=== PATIENT | female | born 1935 | race Hispanic/Latino ===

== ENCOUNTER → 2018-02-27 | Outpatient (CLI) | payer OTHER ==
[~2018-02-27] MED LIST: IOHEXOL-350 75 ML VIAL IV ONE
== END | disposition home or self-care (01) ==
LOC: RAH 07:32
PROVIDERS: ATTEND Family Medicine
DX: K57.30 Diverticulosis of large intestine without perforation or abscess without bleeding (principal); M47.895 Other spondylosis, thoracolumbar region; I10 Essential (primary) hypertension; E78.00 Pure hypercholesterolemia, unspecified; Z90.49 Acquired absence of other specified parts of digestive tract; Z90.710 Acquired absence of both cervix and uterus
CPT/HCPCS: 74178; Q9967

== ENCOUNTER 2018-09-10 22:53 | Emergency (ER) | payer OTHER ==
[2018-09-10 23:27] LABS: BASOPHILS % (AUTO) 0.6 % (0.0-5.0); EOSINOPHILS % (AUTO) 1.1 % (0.0-8.0); HEMATOCRIT 41.2 % (36-48); LYMPHOCYTES % (AUTO) 23.6 % (21.0-51.0); MEAN CORPUSCULAR HEMOGLOBIN 32.2 pg (27.0-33.0); MEAN CORPUSCULAR HGB CONC 34.2 g/dL (32.0-36.0); MEAN CORPUSCULAR VOLUME 94.2 fL (79-99); MONOCYTES % (AUTO) 6.1 % (3.0-13.0); NEUTROPHILS % (AUTO) 68.6 % (40.0-77.0); PLATELET COUNT (AUTO) 338 K/uL (130-400); RED BLOOD CELL COUNT(AUTO) 4.38 MIL/uL (4.00-5.50); WHITE BLOOD COUNT (AUTO) 9.4 K/uL (4.8-10.8)
[2018-09-10 23:39] LABS: CREATININE 0.6 mg/dL (0.5-1.5); POTASSIUM 3.1 mmol/L (3.5-5.1)
[2018-09-10 23:43] LABS: ALBUMIN 4.2 g/dL (3.5-5.0); BILIRUBIN,TOTAL 0.8 mg/dL (0.2-1.0); TOTAL PROTEIN, SERUM 8.6 g/dL (6.0-8.3)
[2018-09-11] MEDS ORDERED: POTASSIUM CHLORIDE 10% ELIXIR 20 MEQ/15 ML UDCUP ONE (01:10)
[2018-09-11 01:31] LABS: APPEARANCE,URINE Clear (CLEAR); BILIRUBIN,URINE Negative (NEGATIVE); COLOR,URINE Yellow (YELLOW); GLUCOSE, URINE (UA) Negative (NEGATIVE); KETONES,URINE Negative (NEGATIVE); LEUKOCYTE ESTERASE ,URINE Negative (NEGATIVE); NITRATE,URINE Negative (NEGATIVE); OCCULT BLOOD,URINE Negative (NEGATIVE); PH,URINE 6.5 (5.0-8.0); PROTEIN,URINE Negative (NEGATIVE); UROBILINOGEN,URINE 0.2 mg/dL (0.2-1.0)
[2018-09-11] MEDS ORDERED: AMLODIPINE BESYLATE 5 MG TAB PO ONE (02:29)
== END 2018-09-11 03:33 | disposition home or self-care (01) ==
LOC: EDH 22:53
DX: I10 Essential (primary) hypertension (principal); R51 Headache; E78.5 Hyperlipidemia, unspecified; E07.9 Disorder of thyroid, unspecified; Z90.710 Acquired absence of both cervix and uterus; Z98.890 Other specified postprocedural states
CPT/HCPCS: 36415; 70450; 80053; 81003; 82550; 84484; 85025; 93005

== ENCOUNTER 2019-10-08 12:38 | Emergency (ER) | payer OTHER ==
[2019-10-08 13:03] LABS: BASOPHILS % (AUTO) 0.4 % (0.0-5.0); EOSINOPHILS % (AUTO) 1.7 % (0.0-8.0); HEMATOCRIT 36.4 % (36-48); MEAN CORPUSCULAR HEMOGLOBIN 31.4 pg (27.0-33.0); MEAN CORPUSCULAR HGB CONC 34.9 g/dL (32.0-36.0); MEAN CORPUSCULAR VOLUME 89.9 fL (79-99); MONOCYTES % (AUTO) 6.6 % (3.0-13.0); NEUTROPHILS % (AUTO) 72.8 % (40.0-77.0); PLATELET COUNT (AUTO) 285 K/uL (130-400); RED BLOOD CELL COUNT(AUTO) 4.05 MIL/uL (4.00-5.50); RED CELL DISTRIBUTION WIDTH 12.7 % (11.0-15.5); WHITE BLOOD COUNT (AUTO) 9.4 K/uL (4.8-10.8)
[2019-10-08 13:12] LABS: CREATININE 0.8 mg/dL (0.5-1.5); POTASSIUM 3.3 mmol/L (3.5-5.1)
[2019-10-08 13:18] LABS: ALBUMIN 3.5 g/dL (3.5-5.0); BILIRUBIN,TOTAL 0.3 mg/dL (0.2-1.0); TOTAL PROTEIN, SERUM 7.2 g/dL (6.0-8.3)
[2019-10-08] MEDS ORDERED: TETANUS/DIPHTHERIA TOXOID [ADULT] 0.5 ML VIAL IM ONE (13:51)
[2019-10-08 14:53] LABS: APPEARANCE,URINE Clear (CLEAR); BILIRUBIN,URINE Negative (NEGATIVE); COLOR,URINE Yellow (YELLOW); GLUCOSE, URINE (UA) Negative (NEGATIVE); KETONES,URINE Negative (NEGATIVE); LEUKOCYTE ESTERASE ,URINE Trace (NEGATIVE); NITRATE,URINE Negative (NEGATIVE); OCCULT BLOOD,URINE Negative (NEGATIVE); PROTEIN,URINE Negative (NEGATIVE); UROBILINOGEN,URINE 0.2 mg/dL (0.2-1.0)
[2019-10-08 15:06] LABS: RBC,URINE 0-1 /HPF (0-1)
[2019-10-08 15:07] LABS: BACTERIA,URINE Rare /HPF (None Seen); MUCUS,URINE Rare LPF (None Seen); SQUAMOUS EPITHELIAL CELL,UR Rare /HPF (0-2)
== END 2019-10-08 15:49 | disposition home or self-care (01) ==
LOC: EDH 12:38
DX: S00.03XA Contusion of scalp, initial encounter (principal); E78.5 Hyperlipidemia, unspecified; I10 Essential (primary) hypertension; W18.09XA Striking against other object with subsequent fall, initial encounter; Y93.89 Activity, other specified; Y92.89 Other specified places as the place of occurrence of the external cause; Y99.8 Other external cause status
CPT/HCPCS: 36415; 70450; 72125; 80053; 81001; 82550; 83605; 84484; 85025; 90471; 90714; 93005

== ENCOUNTER 2019-11-07 09:46 | Inpatient (IN) | payer OTHER ==
[~2019-11-07] VITALS: Ht 162.6 cm; Wt 61.2 kg
[2019-11-07] MEDS ORDERED: ONDANSETRON HCL 4 MG/2 ML VIAL ONE (11:03)
[2019-11-07 11:04] LABS: BASOPHILS % (AUTO) 0.4 % (0.0-5.0); EOSINOPHILS % (AUTO) 1.2 % (0.0-8.0); HEMATOCRIT 38.1 % (36-48); LYMPHOCYTES % (AUTO) 22.3 % (21.0-51.0); MEAN CORPUSCULAR HEMOGLOBIN 31.6 pg (27.0-33.0); MEAN CORPUSCULAR HGB CONC 34.4 g/dL (32.0-36.0); MONOCYTES % (AUTO) 5.3 % (3.0-13.0); NEUTROPHILS % (AUTO) 69.7 % (40.0-77.0); PLATELET COUNT (AUTO) 395 K/uL (130-400); RED BLOOD CELL COUNT(AUTO) 4.14 MIL/uL (4.00-5.50)
[2019-11-07] MEDS ORDERED: SODIUM CHLORIDE 0.9% 1000ML 1,000 ML IV ONE (11:04)
[2019-11-07 11:30] LABS: B-TYPE NATRIURETIC PEPTIDE 20 pg/mL (0-100)
[2019-11-07 11:35] LABS: CREATININE 0.7 mg/dL (0.5-1.5); POTASSIUM 3.6 mmol/L (3.5-5.1)
[2019-11-07 11:39] LABS: ALBUMIN 3.4 g/dL (3.5-5.0); BILIRUBIN,TOTAL 0.5 mg/dL (0.2-1.0); TOTAL PROTEIN, SERUM 7.5 g/dL (6.0-8.3)
[2019-11-07] MEDS ORDERED: METRONIDAZOLE 500MG/100ML BAG 100 ML ONE (12:40)
[2019-11-07] MEDS ORDERED: LEVOFLOXACIN 500 MG/D5W 100 ML 100 ML ONE (13:54)
[2019-11-07] MEDS ORDERED: HYDRALAZINE HCL 20 MG/ML VIAL IV PRN (15:00)
[2019-11-07] MEDS ORDERED: MORPHINE SULFATE 2 MG/ML 1ML SYG IVP PRN (15:00)
[2019-11-07] MEDS: SODIUM CHLORIDE 0.9% 1000ML 1,000 ML IV SCH (15:00)
[2019-11-07 16:30] VITALS: BP 129/47
[2019-11-07] MEDS ORDERED: LEVO88TA7 PO (17:58)
[2019-11-07] MEDS ORDERED: ATEN50TA PO (18:02)
[2019-11-07] MEDS ORDERED: PRAV20TA4 PO (18:02)
[2019-11-07] MEDS ORDERED: HYDR12.54 PO (18:02)
[2019-11-07] MEDS ORDERED: LOSA25TA41 PO (18:02)
[2019-11-07] MEDS: ONDANSETRON HCL 4 MG/2 ML VIAL IVP PRN (18:30)
[2019-11-07] MEDS ORDERED: LATA7.5D OP (18:34)
[2019-11-07] MEDS ORDERED: BRIM5DRO4 OP (18:34)
[2019-11-07 19:35] VITALS: BP 137/64
[2019-11-07] MEDS: METRONIDAZOLE 500MG/100ML BAG 100 ML IVPB SCH (21:35)
[2019-11-07 23:25] VITALS: BP 117/56
[2019-11-08] VITALS (9 sets, daily range): BP systolic 134–162; BP diastolic 53–78
[2019-11-08 01:03] LABS: APPEARANCE,URINE Clear (CLEAR); BILIRUBIN,URINE Negative (NEGATIVE); COLOR,URINE Yellow (YELLOW); GLUCOSE, URINE (UA) Negative (NEGATIVE); KETONES,URINE Negative (NEGATIVE); LEUKOCYTE ESTERASE ,URINE Negative (NEGATIVE); NITRATE,URINE Negative (NEGATIVE); OCCULT BLOOD,URINE Negative (NEGATIVE); PROTEIN,URINE Negative (NEGATIVE); UROBILINOGEN,URINE 0.2 mg/dL (0.2-1.0)
[2019-11-08] MEDS: SODIUM CHLORIDE 0.9% 1000ML 1,000 ML IV SCH ×2 (05:34→18:26)
[2019-11-08] MEDS: METRONIDAZOLE 500MG/100ML BAG 100 ML IVPB SCH ×3 (05:34→20:19)
[2019-11-08 06:07] LABS: HEMATOCRIT 31.7 % (36-48); MEAN CORPUSCULAR HEMOGLOBIN 32.1 pg (27.0-33.0); MEAN CORPUSCULAR HGB CONC 35.3 g/dL (32.0-36.0); MEAN CORPUSCULAR VOLUME 90.8 fL (79-99); RED BLOOD CELL COUNT(AUTO) 3.49 MIL/uL (4.00-5.50); RED CELL DISTRIBUTION WIDTH 12.8 % (11.0-15.5); WHITE BLOOD COUNT (AUTO) 8.9 K/uL (4.8-10.8)
[2019-11-08 06:20] LABS: ALBUMIN 2.9 g/dL (3.5-5.0); BILIRUBIN,TOTAL 0.5 mg/dL (0.2-1.0); CREATININE 0.8 mg/dL (0.5-1.5); TOTAL PROTEIN, SERUM 6.3 g/dL (6.0-8.3)
[2019-11-08 06:34] LABS: POTASSIUM 2.8 mmol/L (3.5-5.1)
[2019-11-08] MEDS ORDERED: POTASSIUM CHLORIDE 20MEQ/100ML 100 ML IV PRN (06:45)
[2019-11-08] MEDS ORDERED: LIDOCAINE HCL-MPF 1% 2ML VIAL IV PRN (06:45)
[2019-11-08] MEDS: POTASSIUM CHLORIDE 20 MEQ ERTAB PO PRN ×2 (07:36→12:23)
[2019-11-08] MEDS ORDERED: CETI10TA57 PO (12:18)
[2019-11-08] MEDS: LEVOFLOXACIN 750 MG/D5W 150 ML 150 ML IV SCH (12:37)
[2019-11-08] MEDS: ONDANSETRON HCL 4 MG/2 ML VIAL IVP PRN (13:58)
[2019-11-08] MEDS: MAGNESIUM 2GM PREMIX 50ML 50 ML IV PRN (14:05)
[2019-11-08] MEDS: POTASSIUM CHLORIDE 10% ELIXIR 20 MEQ/15 ML UDCUP PO PRN ×2 (14:44→16:51)
--- NOTE | 2019-11-08 15:37 | NUR ---
per JORGE Krueger,patient is nauseated.Will attempt to see patient for skilled PT Evaluation 11/09/2019. Addendum: 11/08/19 at 1539 by VANESSA HENLEY, PT PT Amended: Links added.
[2019-11-08 16:37] LABS: CREATININE 0.7 mg/dL (0.5-1.5); MAGNESIUM 1.8 mg/dL (1.80-2.40); POTASSIUM 3.6 mmol/L (3.5-5.1)
[2019-11-08] MEDS: FAMOTIDINE 20MG TAB 20 MG TAB PO SCH (20:22)
[2019-11-08] MEDS: LATANOPROST 2.5 ML DROPS OD SCH (21:00)
[2019-11-08] MEDS: LOSARTAN 50 MG TABLET PO SCH (21:13)
[2019-11-08] MEDS: CETIRIZINE HCL 5 MG TABLET PO SCH (21:13)
[2019-11-08] MEDS: PRAVASTATIN 20 MG PO SCH (21:15)
[2019-11-08] MEDS: BRIMONIDINE TARTRATE 0.2% 5 ML BOTTLE OP SCH (21:25)
[2019-11-09] VITALS (8 sets, daily range): BP systolic 115–159; BP diastolic 59–77
[2019-11-09] MEDS: METRONIDAZOLE 500MG/100ML BAG 100 ML IVPB SCH ×3 (04:56→21:15)
[2019-11-09 05:58] LABS: HEMATOCRIT 33.3 % (36-48); MEAN CORPUSCULAR HGB CONC 34.2 g/dL (32.0-36.0); MEAN CORPUSCULAR VOLUME 90.5 fL (79-99); RED BLOOD CELL COUNT(AUTO) 3.68 MIL/uL (4.00-5.50); RED CELL DISTRIBUTION WIDTH 12.6 % (11.0-15.5); WHITE BLOOD COUNT (AUTO) 7.4 K/uL (4.8-10.8)
[2019-11-09 06:29] LABS: CREATININE 0.7 mg/dL (0.5-1.5); MAGNESIUM 1.7 mg/dL (1.80-2.40); PHOSPHORUS 2.1 mg/dL (2.5-4.9); POTASSIUM 3.9 mmol/L (3.5-5.1); THYROID STIMULATING HORMONE 1.67 uIU/mL (0.36-3.74)
[2019-11-09] MEDS ORDERED: LEVOTHYROXINE 88 MCG TABLET ONE (06:33)
[2019-11-09] MEDS ORDERED: MAGNESIUM 2GM PREMIX 50ML 50 ML IV ONE (06:42)
[2019-11-09] MEDS: LEVOTHYROXINE 88 MCG TABLET PO SCH (06:44)
[2019-11-09] MEDS: MAGNESIUM 2GM PREMIX 50ML 50 ML IV PRN (06:44)
[2019-11-09] MEDS: SODIUM CHLORIDE 0.9% 1000ML 1,000 ML IV SCH ×2 (07:00→13:04)
[2019-11-09] MEDS: BRIMONIDINE TARTRATE 0.2% 5 ML BOTTLE OP SCH ×2 (09:02→21:15)
[2019-11-09] MEDS: HYDROCHLOROTHIAZIDE 25 MG TABLET PO SCH (09:03)
[2019-11-09] MEDS: LEVOFLOXACIN 750 MG/D5W 150 ML 150 ML IV SCH (12:26)
[2019-11-09] MEDS ORDERED: ACETAMINOPHEN EXTENDED RELEASE 650 MG TABLET PO PRN (14:15)
[2019-11-09] MEDS ORDERED: ACETAMINOPHEN EXTRA STRENGTH 500 MG TABLET PO PRN (14:30)
[2019-11-09] MEDS ORDERED: ACETAMINOPHEN EXTRA STRENGTH 500 MG TABLET ONE (14:35)
--- NOTE | 2019-11-09 15:41 | NUR ---
CM NOTE MET W PATIENT AT BEDSIDE, STATES INDEPENDENT, NO DME, NO HH, NO PROVIDER, LIVES W [facility] WILL PROVIDE TRANSPORT, DCP HOME NO ANTICIPATED DC NEEDS, NO CONCERNS VOICED Addendum: 11/09/19 at 1544 by JEET BARTH RN CM Amended: Links added.
[2019-11-09] MEDS: LATANOPROST 2.5 ML DROPS OD SCH (21:00)
[2019-11-09] MEDS: PRAVASTATIN 20 MG PO SCH (21:00)
[2019-11-09] MEDS: FAMOTIDINE 20MG TAB 20 MG TAB PO SCH (21:15)
[2019-11-09] MEDS: CETIRIZINE HCL 5 MG TABLET PO SCH (21:15)
[2019-11-09] MEDS: LOSARTAN 50 MG TABLET PO SCH (21:15)
[2019-11-10] MEDS: SODIUM CHLORIDE 0.9% 1000ML 1,000 ML IV SCH (00:33)
[2019-11-10 03:54] VITALS: BP 164/81
[2019-11-10] MEDS: METRONIDAZOLE 500MG/100ML BAG 100 ML IVPB SCH ×2 (05:32→16:44)
[2019-11-10 05:33] LABS: CREATININE 0.7 mg/dL (0.5-1.5); MAGNESIUM 1.8 mg/dL (1.80-2.40); PHOSPHORUS 2.9 mg/dL (2.5-4.9); POTASSIUM 3.6 mmol/L (3.5-5.1)
[2019-11-10] MEDS: LEVOTHYROXINE 88 MCG TABLET PO SCH (05:55)
[2019-11-10] MEDS: LATANOPROST 2.5 ML DROPS OD SCH (06:03)
[2019-11-10] MEDS: BRIMONIDINE TARTRATE 0.2% 5 ML BOTTLE OP SCH (06:05)
[2019-11-10] MEDS ORDERED: LATANOPROST 2.5 ML DROPS OU SCH (06:15)
[2019-11-10 08:18] VITALS: BP 159/76
[2019-11-10] MEDS: HYDROCHLOROTHIAZIDE 25 MG TABLET PO SCH (09:38)
[2019-11-10] MEDS ORDERED: METR500T PO (11:56)
[2019-11-10] MEDS ORDERED: LEVO500T2 PO (11:56)
[2019-11-10 12:00] VITALS: BP 126/75
[2019-11-10] MEDS: LEVOFLOXACIN 750 MG/D5W 150 ML 150 ML IV SCH (13:38)
--- NOTE | 2019-11-10 15:14 | NUR ---
[id number] patient signed IM Letter, I faxed IM Letter to [phone] and placed in chart under consent tab.
--- NOTE | 2019-11-10 18:10 | NUR ---
PER MD ORDERS DISCHARGED PT HOME. INSTRUCTED TO FOLLOW UP WITH PCP FOR HH SET UP. PT STATES UNDERSTANDING. EDUCATED ON NEW ANTIBIOTIC PRESCRIBED BY MD. INFORMATION ON MEDS PROVIDED WITH DISCHARGE PAPER WORK. PIV REMOVED, TIP INTACT. TELE REMOVED.
== END 2019-11-10 19:15 | disposition home or self-care (01) | DRG 641 ==
LOC: EDH 09:46 → OBSVTOIN 13:30 → EDHIP 13:30 → 3BH 16:37
PROVIDERS: ADMIT Internal Medicine Critical Care Medicine; ATTEND Internal Medicine Critical Care Medicine
DX: E86.0 Dehydration (principal); K52.9 Noninfective gastroenteritis and colitis, unspecified; K57.90 Diverticulosis of intestine, part unspecified, without perforation or abscess without bleeding; E87.6 Hypokalemia; E87.1 Hypo-osmolality and hyponatremia; E83.42 Hypomagnesemia; R29.6 Repeated falls; E03.9 Hypothyroidism, unspecified; E78.5 Hyperlipidemia, unspecified; H40.9 Unspecified glaucoma; I10 Essential (primary) hypertension; Z96.652 Presence of left artificial knee joint; Z79.899 Other long term (current) drug therapy; Z90.710 Acquired absence of both cervix and uterus; Z82.49 Family history of ischemic heart disease and other diseases of the circulatory system
CPT/HCPCS: 36415; 74176; 80048; 80053; 81003; 82150; 83605; 83690; 83735; 83880; 84100; 84439; 84443; 84484; 85025; 85027; 87040; 93005; 97039; G0378; J1956; J2405; J3475; J3480; J3490; J7030

== ENCOUNTER 2021-03-16 09:07 | Inpatient (IN) | payer OTHER ==
[~2021-03-16] VITALS: Ht 162.6 cm; Wt 66.2 kg
[~2021-03-16 09:07] MED LIST changes: +ATEN50TA PO; +BRIM5DRO4 OP; +CETI10TA57 PO; +HYDR12.54 PO; -IOHEXOL-350 75 ML VIAL IV ONE; +LATA7.5D OP; +LEVO500T2 PO; +LEVO88TA7 PO; +LOSA25TA41 PO; +METR500T PO; +PRAV20TA4 PO
[2021-03-16 09:33] LABS: BASOPHILS % (AUTO) 0.3 % (0.0-5.0); EOSINOPHILS % (AUTO) 1.3 % (0.0-8.0); HEMATOCRIT 38.4 % (36-48); LYMPHOCYTES % (AUTO) 26.1 % (21.0-51.0); MEAN CORPUSCULAR HEMOGLOBIN 30.9 pg (27.0-33.0); MEAN CORPUSCULAR HGB CONC 34.4 g/dL (32.0-36.0); MEAN CORPUSCULAR VOLUME 89.9 fL (79-99); MONOCYTES % (AUTO) 7.3 % (3.0-13.0); NEUTROPHILS % (AUTO) 64.6 % (40.0-77.0); PLATELET COUNT (AUTO) 339 K/uL (130-400); RED BLOOD CELL COUNT(AUTO) 4.27 MIL/uL (4.00-5.50); RED CELL DISTRIBUTION WIDTH 12.5 % (11.0-15.5); WHITE BLOOD COUNT (AUTO) 7.4 K/uL (4.8-10.8)
[2021-03-16 09:50] LABS: BILIRUBIN,TOTAL 0.5 mg/dL (0.2-1.0); CREATININE 0.7 mg/dL (0.5-1.5); TOTAL PROTEIN, SERUM 8.3 g/dL (6.0-8.3)
[2021-03-16 09:53] LABS: POTASSIUM 2.9 mmol/L (3.5-5.1)
[2021-03-16 10:30] LABS: APPEARANCE,URINE Clear (CLEAR); BILIRUBIN,URINE Negative (NEGATIVE); COLOR,URINE Yellow (YELLOW); GLUCOSE, URINE (UA) Negative (NEGATIVE); KETONES,URINE Negative (NEGATIVE); LEUKOCYTE ESTERASE ,URINE Negative (NEGATIVE); NITRATE,URINE Negative (NEGATIVE); OCCULT BLOOD,URINE Negative (NEGATIVE); PH,URINE 6.5 (5.0-8.0); PROTEIN,URINE Negative (NEGATIVE)
[2021-03-16] MEDS ORDERED: FAMOTIDINE 20MG VIAL IV ONE (10:30)
[2021-03-16] MEDS ORDERED: SUCRALFATE 1 GM TABLET PO ONE (10:30)
[2021-03-16] MEDS ORDERED: POTASSIUM BICARB/CIT AC 25 MEQ TABLET.EFF PO ONE (10:30)
[2021-03-16] MEDS ORDERED: LIDOCAINE HCL-MPF 1% 2ML VIAL ONE ×2 (19:10→19:15)
[2021-03-16] MEDS ORDERED: POTASSIUM CHLORIDE 20MEQ/100ML 100 ML IV ONE (19:10)
[2021-03-16] MEDS ORDERED: DEXTROSE 5 % AND 0.9 % NACL 1,000 ML IV ONE (19:11)
[2021-03-16] MEDS: PANTOPRAZOLE 40 MG/VIAL IVP SCH (19:14)
[2021-03-16] MEDS: POTASSIUM CHLORIDE 20MEQ/100ML 100 ML IV PRN (19:23)
[2021-03-16] MEDS: DEXTROSE 5 % AND 0.9 % NACL 1,000 ML IV SCH (19:23)
[2021-03-16] MEDS: LIDOCAINE HCL-MPF 1% 2ML VIAL IJ PRN (19:23)
[2021-03-16] MEDS ORDERED: ONDANSETRON 4MG INJ IVP PRN (19:30)
[2021-03-16] MEDS ORDERED: LACTATED RINGERS 500 ML 500 ML IV SCH (19:30)
[2021-03-16] MEDS ORDERED: HYDRALAZINE 20MG/ML VIAL IV PRN (19:30)
[2021-03-16] MEDS ORDERED: POTASSIUM CHLORIDE 10% ELIXIR 20 MEQ/15 ML UDCUP PO PRN (19:30)
[2021-03-16] MEDS ORDERED: LABETALOL 20MG SYG IV PRN (19:30)
[2021-03-17] VITALS (7 sets, daily range): BP systolic 120–171; BP diastolic 56–79
[2021-03-17] MEDS: INSULIN R NPO SSI SQ SCH ×4 (00:15→16:37)
[2021-03-17 04:52] LABS: BASOPHILS % (AUTO) 0.2 % (0.0-5.0); EOSINOPHILS % (AUTO) 0.8 % (0.0-8.0); HEMATOCRIT 36.4 % (36-48); LYMPHOCYTES % (AUTO) 24.6 % (21.0-51.0); MEAN CORPUSCULAR HEMOGLOBIN 31.3 pg (27.0-33.0); MEAN CORPUSCULAR HGB CONC 34.3 g/dL (32.0-36.0); MEAN CORPUSCULAR VOLUME 91.2 fL (79-99); MONOCYTES % (AUTO) 7.6 % (3.0-13.0); NEUTROPHILS % (AUTO) 66.4 % (40.0-77.0); PLATELET COUNT (AUTO) 311 K/uL (130-400); RED BLOOD CELL COUNT(AUTO) 3.99 MIL/uL (4.00-5.50); RED CELL DISTRIBUTION WIDTH 12.5 % (11.0-15.5); WHITE BLOOD COUNT (AUTO) 8.5 K/uL (4.8-10.8)
[2021-03-17 05:47] LABS: CREATININE 0.7 mg/dL (0.5-1.5); MAGNESIUM 1.7 mg/dL (1.80-2.40); PHOSPHORUS 2.7 mg/dL (2.5-4.9)
[2021-03-17 05:53] LABS: POTASSIUM 2.8 mmol/L (3.5-5.1)
[2021-03-17] MEDS: LIDOCAINE HCL-MPF 1% 2ML VIAL IJ PRN ×2 (06:00→13:10)
[2021-03-17] MEDS: POTASSIUM CHLORIDE 20MEQ/100ML 100 ML IV PRN ×2 (06:00→13:11)
[2021-03-17] MEDS: PANTOPRAZOLE 40 MG/VIAL IVP SCH (09:53)
[2021-03-17] MEDS: MAGNESIUM 2GM PREMIX 50ML 50 ML IV SCH (09:54)
[2021-03-17] MEDS: DEXTROSE 5 % AND 0.9 % NACL 1,000 ML IV SCH ×2 (10:03→22:10)
[2021-03-18] VITALS (7 sets, daily range): BP systolic 108–184; BP diastolic 49–86
[2021-03-18 05:31] LABS: POTASSIUM 2.3 mmol/L (3.5-5.1)
[2021-03-18] MEDS: INSULIN R NPO SSI SQ SCH ×4 (05:36→18:00)
[2021-03-18] MEDS: POTASSIUM CHLORIDE 20MEQ/100ML 100 ML IV PRN ×4 (05:43→22:13)
[2021-03-18 07:09] LABS: HEMATOCRIT 34.6 % (36-48); MEAN CORPUSCULAR HEMOGLOBIN 31.6 pg (27.0-33.0); MEAN CORPUSCULAR HGB CONC 34.7 g/dL (32.0-36.0); MEAN CORPUSCULAR VOLUME 91.1 fL (79-99); PLATELET COUNT (AUTO) 300 K/uL (130-400); RED CELL DISTRIBUTION WIDTH 12.8 % (11.0-15.5); WHITE BLOOD COUNT (AUTO) 9.1 K/uL (4.8-10.8)
[2021-03-18 07:28] LABS: CREATININE 0.7 mg/dL (0.5-1.5)
[2021-03-18 08:16] LABS: BASOPHILS % (AUTO) 0.2 % (0.0-5.0); EOSINOPHILS % (AUTO) 0.2 % (0.0-8.0); LYMPHOCYTES % (AUTO) 19.2 % (21.0-51.0); MONOCYTES % (AUTO) 8.1 % (3.0-13.0); NEUTROPHILS % (AUTO) 71.8 % (40.0-77.0)
[2021-03-18 08:57] LABS: BASOPHILS % (AUTO) 0.2 % (0.0-5.0); EOSINOPHILS % (AUTO) 0.4 % (0.0-8.0); HEMATOCRIT 35.8 % (36-48); LYMPHOCYTES % (AUTO) 24.4 % (21.0-51.0); MEAN CORPUSCULAR HEMOGLOBIN 31.2 pg (27.0-33.0); MEAN CORPUSCULAR HGB CONC 34.4 g/dL (32.0-36.0); MEAN CORPUSCULAR VOLUME 90.9 fL (79-99); MONOCYTES % (AUTO) 7.3 % (3.0-13.0); NEUTROPHILS % (AUTO) 67.4 % (40.0-77.0); PLATELET COUNT (AUTO) 322 K/uL (130-400); RED BLOOD CELL COUNT(AUTO) 3.94 MIL/uL (4.00-5.50); RED CELL DISTRIBUTION WIDTH 12.9 % (11.0-15.5); WHITE BLOOD COUNT (AUTO) 9.3 K/uL (4.8-10.8)
[2021-03-18 09:07] LABS: CREATININE 0.8 mg/dL (0.5-1.5); INR 1.03 (0.85-1.15); PROTHROMBIN TIME 11.2 SEC (9.6-11.6)
[2021-03-18 09:27] LABS: POTASSIUM 2.5 mmol/L (3.5-5.1)
[2021-03-18] MEDS: DEXTROSE 5 % AND 0.9 % NACL 1,000 ML IV SCH (11:30)
[2021-03-18] MEDS ORDERED: DIATR MEGLU/DIATRIZOATE SODIUM 30 ML BOTTLE ONE (11:41)
[2021-03-18] MEDS ORDERED: DEXTROSE 5 %-0.45 % NACL 1,000 ML IV ONE (11:57)
[2021-03-18] MEDS: PANTOPRAZOLE 40 MG/VIAL IVP SCH ×2 (12:53→22:03)
[2021-03-18] MEDS: LIDOCAINE HCL-MPF 1% 2ML VIAL IJ PRN ×2 (12:53→22:12)
[2021-03-18] MEDS: LEVOFLOXACIN 500 MG/D5W 100 ML 100 ML IV SCH (12:54)
[2021-03-18] MEDS: METOCLOPRAMIDE 10 MG/2 ML VIAL IVP SCH ×2 (12:55→18:05)
[2021-03-18] MEDS: BRIMONIDINE TARTRATE 0.2% 5 ML BOTTLE OP SCH ×2 (12:55→22:19)
[2021-03-18] MEDS: ATENOLOL 50 MG TABLET PO SCH (13:00)
[2021-03-18] MEDS ORDERED: MORPHINE 2 MG SYG IVP PRN (13:30)
[2021-03-18] MEDS ORDERED: HYDROMORPHONE 1 MG INJ IVP PRN (17:00)
[2021-03-18] MEDS: KETOROLAC 30MG VIAL (30MG/ML) IV SCH (17:54)
[2021-03-18] MEDS: METRONIDAZOLE 500MG/100ML BAG 100 ML IVPB SCH ×2 (17:55→22:03)
[2021-03-18] MEDS: CETIRIZINE HCL 5 MG TABLET PO SCH (21:00)
[2021-03-18] MEDS: ATORVASTATIN 10 MG TABLET PO SCH (21:00)
[2021-03-18] MEDS: LOSARTAN 25 MG TABLET PO SCH (21:00)
[2021-03-18] MEDS ORDERED: ACETAMINOPHEN 325 MG SUPPOSITORY RC PRN (21:30)
[2021-03-18] MEDS ORDERED: ACETAMINOPHEN 325 MG TAB PO PRN (21:30)
[2021-03-18] MEDS: D5W-1/2 NS/20MEQ KCL 1,000 ML IV SCH (22:12)
[2021-03-18] MEDS: LATANOPROST 2.5 ML DROPS OP SCH (22:20)
[2021-03-19] VITALS (26 sets, daily range): BP systolic 109–163; BP diastolic 40–84
[2021-03-19] MEDS: KETOROLAC 30MG VIAL (30MG/ML) IV SCH ×5 (00:14→22:40)
[2021-03-19] MEDS: POTASSIUM CHLORIDE 20MEQ/100ML 100 ML IV PRN (03:41)
[2021-03-19] MEDS: LIDOCAINE HCL-MPF 1% 2ML VIAL IJ PRN (03:41)
[2021-03-19] MEDS: D5W-1/2 NS/20MEQ KCL 1,000 ML IV SCH ×2 (05:59→22:37)
[2021-03-19] MEDS: INSULIN R NPO SSI SQ SCH ×4 (06:00→18:00)
[2021-03-19] MEDS: METOCLOPRAMIDE 10 MG/2 ML VIAL IVP SCH ×3 (06:00→17:00)
[2021-03-19] MEDS: LEVOTHYROXINE 88 MCG TABLET PO SCH (06:02)
[2021-03-19] MEDS: METRONIDAZOLE 500MG/100ML BAG 100 ML IVPB SCH ×3 (06:03→22:41)
[2021-03-19 06:27] LABS: MEAN CORPUSCULAR HGB CONC 33.5 g/dL (32.0-36.0); MEAN CORPUSCULAR VOLUME 92.4 fL (79-99); RED BLOOD CELL COUNT(AUTO) 3.68 MIL/uL (4.00-5.50); WHITE BLOOD COUNT (AUTO) 10.5 K/uL (4.8-10.8)
[2021-03-19 06:51] LABS: CREATININE 0.8 mg/dL (0.5-1.5); MAGNESIUM 1.7 mg/dL (1.80-2.40); PHOSPHORUS 1.6 mg/dL (2.5-4.9); POTASSIUM 3.2 mmol/L (3.5-5.1)
[2021-03-19] MEDS: BRIMONIDINE TARTRATE 0.2% 5 ML BOTTLE OP SCH ×2 (09:00→22:50)
[2021-03-19] MEDS ORDERED: FLUCONAZOLE 400 MG/NS 200 ML 200 ML IV SCH (09:00)
[2021-03-19] MEDS: ATENOLOL 50 MG TABLET PO SCH (09:00)
[2021-03-19] MEDS: LEVOFLOXACIN 500 MG/D5W 100 ML 100 ML IV SCH (10:24)
[2021-03-19] MEDS: PANTOPRAZOLE 40 MG/VIAL IVP SCH ×2 (10:25→22:40)
[2021-03-19] MEDS ORDERED: LIDOCAINE HCL 1% 20 ML VIAL ONE (12:50)
[2021-03-19] MEDS ORDERED: PROPOFOL 10 MG/ML 20ML VIAL IV ONE ×2 (12:50→17:13)
[2021-03-19] MEDS ORDERED: DEXAMETHASONE SOD PHOSPHATE 10MG/ML 1ML VIAL ONE (17:13)
[2021-03-19] MEDS ORDERED: SUCCINYLCHOLINE CHLORIDE 20 MG/ML 10 ML VIAL ONE (17:13)
[2021-03-19] MEDS ORDERED: ONDANSETRON 4MG INJ ONE (17:13)
[2021-03-19] MEDS ORDERED: GLYCOPYRROLATE 1 MG/5 ML SYRINGE ONE (17:13)
[2021-03-19] MEDS ORDERED: LIDOCAINE PF 100MG/5ML (2%) SYRINGE 5ML ONE (17:13)
[2021-03-19] MEDS ORDERED: MIDAZOLAM HCL 1 MG/ML 2ML VIAL ONE (17:14)
[2021-03-19] MEDS ORDERED: NEOSTIGMINE 5MG/5ML SYR IV ONE (17:14)
[2021-03-19] MEDS ORDERED: FENTANYL CITRATE PF 50 MCG/1 ML 2ML VIAL ONE ×2 (17:14→18:45)
[2021-03-19] MEDS ORDERED: ROPIVACAINE 0.5% 5MG/ML 30ML IJ ONE (17:48)
[2021-03-19] MEDS ORDERED: ROCURONIUM 10MG/1ML SYR 10 MG/ML ML ONE ×2 (17:57→19:10)
[2021-03-19] MEDS ORDERED: ALBUMIN (HUMAN) 5% 500 ML IV ONE (18:28)
[2021-03-19] MEDS ORDERED: CEFAZOLIN SODIUM 1 GM VIAL ONE (18:40)
[2021-03-19] MEDS ORDERED: M.V.I. IV [ADULT] 10 ML in CLINIMIX-E 5%AA /D15%W 2000ML 2,000 ML IV SCH (19:00)
[2021-03-19] MEDS: LOSARTAN 25 MG TABLET PO SCH (21:00)
[2021-03-19] MEDS: CETIRIZINE HCL 5 MG TABLET PO SCH (21:00)
[2021-03-19] MEDS: ATORVASTATIN 10 MG TABLET PO SCH (21:00)
[2021-03-19] MEDS ORDERED: MEPERIDINE-PF 25 MG/ML SYG ONE ×2 (21:51→21:59)
[2021-03-19] MEDS: LATANOPROST 2.5 ML DROPS OP SCH (22:50)
[2021-03-20] VITALS (16 sets, daily range): BP systolic 111–151; BP diastolic 41–78
[2021-03-20] MEDS: D5W-1/2 NS/20MEQ KCL 1,000 ML IV SCH ×3 (00:30→20:25)
[2021-03-20 04:25] LABS: MEAN CORPUSCULAR HEMOGLOBIN 31.4 pg (27.0-33.0); MEAN CORPUSCULAR HGB CONC 34.4 g/dL (32.0-36.0); MEAN CORPUSCULAR VOLUME 91.2 fL (79-99); RED BLOOD CELL COUNT(AUTO) 2.96 MIL/uL (4.00-5.50); RED CELL DISTRIBUTION WIDTH 13.2 % (11.0-15.5); WHITE BLOOD COUNT (AUTO) 14.2 K/uL (4.8-10.8)
[2021-03-20 04:43] LABS: ALBUMIN 3.1 g/dL (3.5-5.0); BILIRUBIN,TOTAL 0.8 mg/dL (0.2-1.0); CREATININE 0.6 mg/dL (0.5-1.5); MAGNESIUM 1.2 mg/dL (1.80-2.40); PHOSPHORUS 2.6 mg/dL (2.5-4.9); TOTAL PROTEIN, SERUM 5.8 g/dL (6.0-8.3)
[2021-03-20 04:47] LABS: POTASSIUM 2.8 mmol/L (3.5-5.1)
[2021-03-20] MEDS: LIDOCAINE HCL-MPF 1% 2ML VIAL IJ PRN ×2 (05:01→10:27)
[2021-03-20] MEDS: POTASSIUM CHLORIDE 20MEQ/100ML 100 ML IV PRN ×2 (05:02→10:26)
[2021-03-20] MEDS: KETOROLAC 30MG VIAL (30MG/ML) IV SCH ×4 (05:05→22:52)
[2021-03-20] MEDS: MAGNESIUM 2GM PREMIX 50ML 50 ML IV SCH (05:06)
[2021-03-20] MEDS: METRONIDAZOLE 500MG/100ML BAG 100 ML IVPB SCH ×3 (05:06→22:48)
[2021-03-20] MEDS: LEVOTHYROXINE 88 MCG TABLET PO SCH (07:30)
[2021-03-20] MEDS: METOCLOPRAMIDE 10 MG/2 ML VIAL IVP SCH ×3 (07:48→18:54)
[2021-03-20] MEDS: INSULIN R NPO SSI SQ SCH ×4 (07:50→18:00)
[2021-03-20] MEDS: BRIMONIDINE TARTRATE 0.2% 5 ML BOTTLE OP SCH ×2 (09:00→20:19)
[2021-03-20] MEDS: ATENOLOL 50 MG TABLET PO SCH (09:00)
[2021-03-20] MEDS ORDERED: FAT EMULSIONS 20% 250ML 250 ML IV SCH (10:00)
[2021-03-20] MEDS: PANTOPRAZOLE 40 MG/VIAL IVP SCH ×2 (10:24→20:18)
[2021-03-20] MEDS ORDERED: LIDOCAINE HCL-MPF 1% 2ML VIAL IV PRN (11:00)
[2021-03-20] MEDS ORDERED: POTASSIUM CHLORIDE 20MEQ/100ML 100 ML IV PRN (11:00)
[2021-03-20] MEDS ORDERED: HEPARIN 1,000 UNIT VIAL ONE (14:54)
[2021-03-20] MEDS ORDERED: LIDOCAINE HCL 1% MDV 50ML VIAL ONE (14:54)
[2021-03-20] MEDS: FLUCONAZOLE 400 MG/NS 200 ML 200 ML IV SCH (20:18)
[2021-03-20] MEDS: LATANOPROST 2.5 ML DROPS OP SCH (20:19)
[2021-03-20] MEDS: LOSARTAN 25 MG TABLET PO SCH (20:25)
[2021-03-20] MEDS: CETIRIZINE HCL 5 MG TABLET PO SCH (20:25)
[2021-03-20] MEDS: ATORVASTATIN 10 MG TABLET PO SCH (20:25)
[2021-03-20] MEDS: LEVOFLOXACIN 500 MG/D5W 100 ML 100 ML IV SCH (22:52)
[2021-03-21] VITALS (7 sets, daily range): BP systolic 126–154; BP diastolic 49–67
[2021-03-21 04:33] LABS: CREATININE 0.6 mg/dL (0.5-1.5); POTASSIUM 3.1 mmol/L (3.5-5.1)
[2021-03-21 04:35] LABS: HEMATOCRIT 24.2 % (36-48); MEAN CORPUSCULAR HEMOGLOBIN 31.3 pg (27.0-33.0); MEAN CORPUSCULAR HGB CONC 34.3 g/dL (32.0-36.0); MEAN CORPUSCULAR VOLUME 91.3 fL (79-99); RED BLOOD CELL COUNT(AUTO) 2.65 MIL/uL (4.00-5.50); RED CELL DISTRIBUTION WIDTH 13.2 % (11.0-15.5); WHITE BLOOD COUNT (AUTO) 11.5 K/uL (4.8-10.8)
[2021-03-21] MEDS: KETOROLAC 30MG VIAL (30MG/ML) IV SCH ×3 (05:23→21:59)
[2021-03-21] MEDS: POTASSIUM CHLORIDE 20MEQ/100ML 100 ML IV PRN ×3 (05:55→19:45)
[2021-03-21] MEDS: LEVOTHYROXINE 88 MCG TABLET PO SCH (05:55)
[2021-03-21] MEDS: METOCLOPRAMIDE 10 MG/2 ML VIAL IVP SCH ×3 (05:56→17:00)
[2021-03-21] MEDS: METRONIDAZOLE 500MG/100ML BAG 100 ML IVPB SCH ×2 (05:56→14:52)
[2021-03-21] MEDS: ATENOLOL 50 MG TABLET PO SCH (10:02)
[2021-03-21] MEDS: PANTOPRAZOLE 40 MG/VIAL IVP SCH ×2 (10:06→19:43)
[2021-03-21] MEDS: BRIMONIDINE TARTRATE 0.2% 5 ML BOTTLE OP SCH ×2 (10:19→19:43)
[2021-03-21] MEDS: INSULIN R NPO SSI SQ SCH ×2 (12:00)
[2021-03-21] MEDS: D5W-1/2 NS/20MEQ KCL 1,000 ML IV SCH ×2 (12:55→16:30)
[2021-03-21] MEDS: LIDOCAINE HCL-MPF 1% 2ML VIAL IJ PRN ×2 (14:52→19:45)
[2021-03-21] MEDS: FLUCONAZOLE 400 MG/NS 200 ML 200 ML IV SCH (19:43)
[2021-03-21] MEDS: LATANOPROST 2.5 ML DROPS OP SCH (19:43)
[2021-03-21] MEDS: LOSARTAN 25 MG TABLET PO SCH (19:43)
[2021-03-21] MEDS: CETIRIZINE HCL 5 MG TABLET PO SCH (19:44)
[2021-03-21] MEDS: ATORVASTATIN 10 MG TABLET PO SCH (19:44)
[2021-03-21] MEDS: METRONIDAZOLE 500 MG TABLET PO SCH (21:48)
[2021-03-21] MEDS: LEVOFLOXACIN 500 MG/D5W 100 ML 100 ML IV SCH (21:48)
[2021-03-22 00:03] VITALS: BP 144/75
[2021-03-22] MEDS: D5W-1/2 NS/20MEQ KCL 1,000 ML IV SCH ×3 (00:04→22:35)
[2021-03-22] MEDS: MAGNESIUM 2GM PREMIX 50ML 50 ML IV PRN (01:47)
[2021-03-22 03:40] VITALS: BP 151/72
[2021-03-22] MEDS: KETOROLAC 30MG VIAL (30MG/ML) IV SCH ×4 (04:10→23:18)
[2021-03-22 04:50] LABS: HEMATOCRIT 24.5 % (36-48); MEAN CORPUSCULAR HEMOGLOBIN 30.8 pg (27.0-33.0); MEAN CORPUSCULAR HGB CONC 33.1 g/dL (32.0-36.0); MEAN CORPUSCULAR VOLUME 93.2 fL (79-99); RED BLOOD CELL COUNT(AUTO) 2.63 MIL/uL (4.00-5.50); RED CELL DISTRIBUTION WIDTH 13.5 % (11.0-15.5); WHITE BLOOD COUNT (AUTO) 9.5 K/uL (4.8-10.8)
[2021-03-22] MEDS: METRONIDAZOLE 500 MG TABLET PO SCH ×3 (05:14→21:11)
[2021-03-22 05:20] LABS: CREATININE 0.6 mg/dL (0.5-1.5); POTASSIUM 3.6 mmol/L (3.5-5.1)
[2021-03-22] MEDS: INSULIN R NPO SSI SQ SCH ×4 (05:55→16:25)
[2021-03-22] MEDS: METOCLOPRAMIDE 10 MG/2 ML VIAL IVP SCH ×3 (06:12→16:25)
[2021-03-22] MEDS: LEVOTHYROXINE 88 MCG TABLET PO SCH (06:14)
[2021-03-22] MEDS: PANTOPRAZOLE 40 MG/VIAL IVP SCH ×2 (07:49→21:11)
[2021-03-22] MEDS: BRIMONIDINE TARTRATE 0.2% 5 ML BOTTLE OP SCH ×2 (07:50→21:12)
[2021-03-22] MEDS: ATENOLOL 50 MG TABLET PO SCH (07:56)
[2021-03-22 07:58] VITALS: BP 169/61
[2021-03-22 11:29] VITALS: BP 107/50
[2021-03-22 17:01] VITALS: BP 158/66
[2021-03-22 19:45] VITALS: BP 151/73
[2021-03-22] MEDS: LOSARTAN 25 MG TABLET PO SCH (21:11)
[2021-03-22] MEDS: CETIRIZINE HCL 5 MG TABLET PO SCH (21:11)
[2021-03-22] MEDS: FLUCONAZOLE 400 MG/NS 200 ML 200 ML IV SCH (21:11)
[2021-03-22] MEDS: ATORVASTATIN 10 MG TABLET PO SCH (21:12)
[2021-03-22] MEDS: LATANOPROST 2.5 ML DROPS OP SCH (21:12)
[2021-03-22] MEDS: LEVOFLOXACIN 500 MG/D5W 100 ML 100 ML IV SCH (23:18)
[2021-03-23] VITALS (7 sets, daily range): BP systolic 150–186; BP diastolic 61–88
[2021-03-23 03:41] LABS: HEMATOCRIT 25.7 % (36-48); MEAN CORPUSCULAR HEMOGLOBIN 31.5 pg (27.0-33.0); MEAN CORPUSCULAR HGB CONC 33.9 g/dL (32.0-36.0); MEAN CORPUSCULAR VOLUME 93.1 fL (79-99); NUCLEATED RED BLOOD CELLS 0.4 % (0.0-0.19); RED BLOOD CELL COUNT(AUTO) 2.76 MIL/uL (4.00-5.50); RED CELL DISTRIBUTION WIDTH 13.4 % (11.0-15.5); WHITE BLOOD COUNT (AUTO) 10.4 K/uL (4.8-10.8)
[2021-03-23 03:57] LABS: ALBUMIN 2.5 g/dL (3.5-5.0); BILIRUBIN,TOTAL 0.5 mg/dL (0.2-1.0); CREATININE 0.6 mg/dL (0.5-1.5); POTASSIUM 3.4 mmol/L (3.5-5.1); TOTAL PROTEIN, SERUM 5.5 g/dL (6.0-8.3)
[2021-03-23] MEDS: LEVOTHYROXINE 88 MCG TABLET PO SCH (04:59)
[2021-03-23] MEDS: METRONIDAZOLE 500 MG TABLET PO SCH ×3 (04:59→20:31)
[2021-03-23] MEDS: KETOROLAC 30MG VIAL (30MG/ML) IV SCH ×2 (05:00→10:58)
[2021-03-23] MEDS: METOCLOPRAMIDE 10 MG/2 ML VIAL IVP SCH ×3 (05:00→16:12)
[2021-03-23] MEDS: INSULIN HUMULIN R 100 UNIT/ML 3ML SQ SCH ×4 (05:46→21:00)
[2021-03-23] MEDS: D5W-1/2 NS/20MEQ KCL 1,000 ML IV SCH ×2 (05:58→18:12)
[2021-03-23] MEDS: BRIMONIDINE TARTRATE 0.2% 5 ML BOTTLE OP SCH ×2 (09:00→20:32)
[2021-03-23] MEDS: HYDROCHLOROTHIAZIDE 25 MG TABLET PO SCH (10:57)
[2021-03-23] MEDS: PANTOPRAZOLE 40 MG/VIAL IVP SCH ×2 (10:58→20:31)
[2021-03-23] MEDS: ATENOLOL 50 MG TABLET PO SCH (10:58)
[2021-03-23] MEDS: CETIRIZINE HCL 5 MG TABLET PO SCH (20:30)
[2021-03-23] MEDS: ATORVASTATIN 10 MG TABLET PO SCH (20:30)
[2021-03-23] MEDS: LOSARTAN 25 MG TABLET PO SCH (20:30)
[2021-03-23] MEDS: FLUCONAZOLE 400 MG/NS 200 ML 200 ML IV SCH (20:31)
[2021-03-23] MEDS: LATANOPROST 2.5 ML DROPS OP SCH (20:32)
[2021-03-23] MEDS ORDERED: LOSARTAN 25 MG TABLET PO SCH (21:00)
[2021-03-23] MEDS: LEVOFLOXACIN 500 MG/D5W 100 ML 100 ML IV SCH (23:00)
[2021-03-24] MEDS: D5W-1/2 NS/20MEQ KCL 1,000 ML IV SCH ×2 (03:15→14:30)
[2021-03-24 03:52] VITALS: BP 181/83
[2021-03-24 05:24] LABS: CREATININE 0.7 mg/dL (0.5-1.5); MAGNESIUM 1.5 mg/dL (1.80-2.40); POTASSIUM 3.3 mmol/L (3.5-5.1)
[2021-03-24] MEDS: MAGNESIUM 2GM PREMIX 50ML 50 ML IV PRN (05:48)
[2021-03-24] MEDS: KCL 20 MEQ ERTAB PO PRN ×2 (05:48→11:45)
[2021-03-24] MEDS: METRONIDAZOLE 500 MG TABLET PO SCH ×2 (06:26→13:35)
[2021-03-24] MEDS: LEVOTHYROXINE 88 MCG TABLET PO SCH (06:30)
[2021-03-24] MEDS: INSULIN HUMULIN R 100 UNIT/ML 3ML SQ SCH ×3 (06:41→16:30)
[2021-03-24 08:00] VITALS: BP 177/89
[2021-03-24] MEDS: PANTOPRAZOLE 40 MG/VIAL IVP SCH (08:54)
[2021-03-24] MEDS: BRIMONIDINE TARTRATE 0.2% 5 ML BOTTLE OP SCH (08:55)
[2021-03-24] MEDS: HYDROCHLOROTHIAZIDE 25 MG TABLET PO SCH (08:55)
[2021-03-24] MEDS ORDERED: ATENOLOL 50 MG TABLET PO SCH (09:00)
[2021-03-24 12:01] VITALS: BP 172/80
[2021-03-24] MEDS ORDERED: HYDRALAZINE 25MG TABLET ONE (13:34)
[2021-03-24] MEDS ORDERED: HYDRALAZINE 25MG TABLET PO SCH (14:00)
[2021-03-24 16:00] VITALS: BP 170/82
== END 2021-03-24 19:38 | DRG 330 ==
LOC: EDH 09:07 → OBSVTOIN 12:30 → EDHIP 12:30 → 3AH 23:14
PROVIDERS: ADMIT Internal Medicine Pulmonary Disease; ATTEND Internal Medicine Pulmonary Disease
PROC: 0D9670Z Drainage of Stomach with Drainage Device, Via Natural or Artificial Opening (ICD-10-PCS; 2021-03-16)
PROC: 05H433Z Insertion of Infusion Device into Left Innominate Vein, Percutaneous Approach (ICD-10-PCS; 2021-03-18)
PROC: 0DBN0ZZ Excision of Sigmoid Colon, Open Approach (ICD-10-PCS; principal; 2021-03-19 18:38)
PROC: 05HY33Z Insertion of Infusion Device into Upper Vein, Percutaneous Approach (ICD-10-PCS; 2021-03-19 18:38)
PROC: 0D1M0Z4 Bypass Descending Colon to Cutaneous, Open Approach (ICD-10-PCS; 2021-03-19 18:38)
PROC: 0DJD8ZZ Inspection of Lower Intestinal Tract, Via Natural or Artificial Opening Endoscopic (ICD-10-PCS; 2021-03-19 18:38)
DX: K56.699 Other intestinal obstruction unspecified as to partial versus complete obstruction (principal); D62 Acute posthemorrhagic anemia; E87.6 Hypokalemia; K57.30 Diverticulosis of large intestine without perforation or abscess without bleeding; I10 Essential (primary) hypertension; E78.00 Pure hypercholesterolemia, unspecified; E03.9 Hypothyroidism, unspecified; Z20.822 Contact with and (suspected) exposure to COVID-19; R93.3 Abnormal findings on diagnostic imaging of other parts of digestive tract; N73.6 Female pelvic peritoneal adhesions (postinfective); R53.81 Other malaise; N32.89 Other specified disorders of bladder; Z90.710 Acquired absence of both cervix and uterus
CPT/HCPCS: 36415; 36558; 45378; 71045; 74018; 74176; 74270; 77001; 80048; 80053; 81003; 82150; 82948; 83690; 83735; 84100; 84132; 84484; 85025; 85027; 85610; 86850; 86900; 86901; 86923; 87635; 93005; 97039; A4606; C1751; C1894; C9113; G0378; J0330; J0360; J0690; J1100; J1170; J1450; J1644; J1815; J1885; J1956; J2001; J2175; J2250; J2405; J2704; J2710; J2765; J2795; J3010; J3475; J3480; J3490; J7030; J7042; J7120; P9045; Q9963

== ENCOUNTER 2021-10-26 10:00 | Inpatient (IN) | payer OTHER ==
[~2021-10-26] VITALS: Ht 162.6 cm; Wt 61.0 kg
[2021-10-26 09:10] LABS: BASOPHILS % (AUTO) 0.4 % (0.0-5.0); EOSINOPHILS % (AUTO) 2.9 % (0.0-8.0); HEMATOCRIT 41.5 % (36-48); LYMPHOCYTES % (AUTO) 32.3 % (21.0-51.0); MEAN CORPUSCULAR HEMOGLOBIN 29.9 pg (27.0-33.0); MEAN CORPUSCULAR VOLUME 90.6 fL (79-99); MONOCYTES % (AUTO) 6.3 % (3.0-13.0); NEUTROPHILS % (AUTO) 57.7 % (40.0-77.0); PLATELET COUNT (AUTO) 361 K/uL (130-400); RED BLOOD CELL COUNT(AUTO) 4.58 MIL/uL (4.00-5.50); RED CELL DISTRIBUTION WIDTH 13.2 % (11.0-15.5); WHITE BLOOD COUNT (AUTO) 7.2 K/uL (4.8-10.8)
[2021-10-26 09:18] LABS: INR 0.94 (0.85-1.15); PROTHROMBIN TIME 10.3 SEC (9.6-11.6)
[2021-10-26 09:19] LABS: PARTIAL THROMBOPLASTIN TIME 29.1 SEC (26.3-35.5)
[2021-10-26 09:23] LABS: CREATININE 0.7 mg/dL (0.5-1.5); POTASSIUM 4.5 mmol/L (3.5-5.1)
[~2021-10-26 10:00] MED LIST changes: -ATEN50TA PO; -BRIM5DRO4 OP; -CETI10TA57 PO; -LEVO500T2 PO; -LEVO88TA7 PO; -METR500T PO; -PRAV20TA4 PO
[2021-10-30] MEDS ORDERED: LEVO100T4 PO (09:01)
[2021-10-30] MEDS ORDERED: PRAV20TA4 PO (09:01)
[2021-10-30] MEDS ORDERED: DORZ10DR19 OU (09:02)
[2021-10-30] MEDS ORDERED: ATEN50TA PO (09:04)
[2021-10-31] VITALS (25 sets, daily range): BP systolic 67–159; BP diastolic 43–72
[2021-10-31] MEDS ORDERED: CEFAZOLIN SODIUM 1 GM VIAL IVP SCH (05:00)
[2021-10-31] MEDS ORDERED: LACTATED RINGERS 1000ML 1,000 ML IV ONE (08:46)
[2021-10-31] MEDS ORDERED: LIDOCAINE PF 100MG/5ML (2%) SYRINGE 5ML ONE (10:24)
[2021-10-31] MEDS ORDERED: SUCCINYLCHOLINE CHLORIDE 20 MG/ML 10 ML VIAL ONE (10:24)
[2021-10-31] MEDS ORDERED: ONDANSETRON 4MG INJ ONE (10:24)
[2021-10-31] MEDS ORDERED: MIDAZOLAM HCL 1 MG/ML 2ML VIAL ONE (10:24)
[2021-10-31] MEDS ORDERED: FENTANYL CITRATE PF 50 MCG/1 ML 2ML VIAL ONE (10:25)
[2021-10-31] MEDS ORDERED: PROPOFOL 10 MG/ML 20ML VIAL IV ONE (10:25)
[2021-10-31] MEDS ORDERED: ROCURONIUM 10MG/1ML SYR 10 MG/ML ML ONE ×2 (10:25→11:48)
[2021-10-31] MEDS ORDERED: EPHEDRINE SULFATE 50 MG/ML AMPULE ONE (10:49)
[2021-10-31] MEDS ORDERED: CEFAZOLIN SODIUM 1 GM VIAL IV ONE (11:05)
[2021-10-31] MEDS ORDERED: EPINEPHRINE PF 1MG AMP ONE (11:05)
[2021-10-31] MEDS ORDERED: METRONIDAZOLE 500MG/100ML BAG 100 ML ONE (11:33)
[2021-10-31] MEDS ORDERED: CEFAZOLIN SODIUM 1 GM VIAL ONE (11:33)
[2021-10-31] MEDS ORDERED: PHENYLEPHRINE HCL 10 MG/ML 1ML VIAL IV ONE (12:16)
[2021-10-31] MEDS ORDERED: BUPIVACAINE/PF 0.5% 30ML VIAL ONE (13:28)
[2021-10-31] MEDS ORDERED: LIDOCAINE 1%-EPI 1:100,000 20 ML VIAL IJ ONE (13:28)
[2021-10-31] MEDS ORDERED: GLYCOPYRROLATE 1 MG/5 ML SYRINGE ONE (13:40)
[2021-10-31] MEDS ORDERED: NEOSTIGMINE 5MG/5ML SYR IV ONE (13:40)
[2021-10-31] MEDS ORDERED: LIDOCAINE HCL 4% LTA SOL 4 ML VIAL ONE (13:55)
[2021-10-31] MEDS ORDERED: ALBUMIN (HUMAN) 5% 250 ML IV ONE (14:06)
[2021-10-31] MEDS ORDERED: MORPHINE 2 MG SYG ONE ×3 (14:13→14:28)
[2021-10-31] MEDS ORDERED: 0.9%NACL 1000ML 1,000 ML IV SCH (17:30)
[2021-10-31] MEDS ORDERED: HYDROMORPHONE 0.5 MG SYG (0.5MG/0.5ML) IVP PRN (17:30)
[2021-10-31] MEDS ORDERED: MORPHINE 2 MG SYG IVP PRN (18:00)
[2021-10-31] MEDS ORDERED: IPRATROPIUM/ALBUTEROL SULFATE 3 ML SOLUTION IH PRN (18:30)
[2021-10-31] MEDS: DEXTROSE 5 % AND 0.9 % NACL 1,000 ML IV SCH (18:43)
[2021-10-31] MEDS: ZOSYN 3.375GM+NS 50ML 50 ML IV SCH (18:43)
[2021-10-31] MEDS: KETOROLAC 15MG/ML VIAL (15MG/ML) IV SCH (18:44)
[2021-10-31 18:58] LABS: CREATININE 0.8 mg/dL (0.5-1.5); MAGNESIUM 1.4 mg/dL (1.80-2.40)
[2021-10-31 20:02] LABS: POTASSIUM 2.9 mmol/L (3.5-5.1)
[2021-10-31] MEDS: FAMOTIDINE 20MG VIAL IV SCH (21:00)
[2021-10-31] MEDS: DORZOLAMIDE HCL 2% 10ML DROPS OU SCH (22:10)
[2021-10-31] MEDS: LATANOPROST 2.5 ML DROPS OP SCH (22:11)
[2021-10-31] MEDS: POTASSIUM CHLORIDE 20MEQ/100ML 100 ML IV PRN (23:09)
[2021-11-01] MEDS: ZOSYN 3.375GM+NS 50ML 50 ML IV SCH ×3 (02:03→17:08)
[2021-11-01] MEDS: POTASSIUM CHLORIDE 20MEQ/100ML 100 ML IV PRN (02:14)
[2021-11-01 04:33] VITALS: BP 157/66
[2021-11-01 05:00] LABS: HEMATOCRIT 33.8 % (36-48); MEAN CORPUSCULAR HEMOGLOBIN 29.6 pg (27.0-33.0); MEAN CORPUSCULAR HGB CONC 32.2 g/dL (32.0-36.0); MEAN CORPUSCULAR VOLUME 91.8 fL (79-99); RED BLOOD CELL COUNT(AUTO) 3.68 MIL/uL (4.00-5.50); RED CELL DISTRIBUTION WIDTH 13.3 % (11.0-15.5); WHITE BLOOD COUNT (AUTO) 19.2 K/uL (4.8-10.8)
[2021-11-01 05:36] LABS: CREATININE 0.8 mg/dL (0.5-1.5); MAGNESIUM 1.3 mg/dL (1.80-2.40); PHOSPHORUS 2.7 mg/dL (2.5-4.9); POTASSIUM 3.4 mmol/L (3.5-5.1); THYROID STIMULATING HORMONE 1.86 uIU/mL (0.36-3.74)
[2021-11-01] MEDS: KETOROLAC 15MG/ML VIAL (15MG/ML) IV SCH ×4 (06:10→17:09)
[2021-11-01] MEDS: MAGNESIUM 2GM PREMIX 50ML 50 ML IV PRN (06:10)
[2021-11-01] MEDS: DEXTROSE 5 % AND 0.9 % NACL 1,000 ML IV SCH ×2 (07:50→12:03)
[2021-11-01] MEDS ORDERED: OXYMETAZOLINE HCL SPRAY 15 ML BOTTLE ONE (07:58)
[2021-11-01 08:00] VITALS: BP 135/60
[2021-11-01] MEDS: DORZOLAMIDE HCL 2% 10ML DROPS OU SCH ×2 (08:57→21:55)
[2021-11-01] MEDS: ENOXAPARIN SODIUM 30 MG/0.3 ML SQ SCH (08:58)
[2021-11-01] MEDS: IODOSORB GEL 40GM TP SCH (09:00)
[2021-11-01] MEDS: FAMOTIDINE 20MG VIAL IV SCH (09:00)
[2021-11-01 11:54] VITALS: BP 118/56
[2021-11-01 16:00] VITALS: BP 129/56
[2021-11-01 19:24] VITALS: BP 126/64
[2021-11-01] MEDS: PANTOPRAZOLE 40 MG/VIAL IVP SCH (21:55)
[2021-11-01] MEDS: LATANOPROST 2.5 ML DROPS OP SCH (21:55)
[2021-11-01 22:47] LABS: MAGNESIUM 1.7 mg/dL (1.80-2.40); POTASSIUM 3.5 mmol/L (3.5-5.1)
[2021-11-02 00:01] VITALS: BP 141/60
[2021-11-02] MEDS: KETOROLAC 15MG/ML VIAL (15MG/ML) IV SCH ×4 (00:12→18:00)
[2021-11-02] MEDS: MAGNESIUM 2GM PREMIX 50ML 50 ML IV PRN (00:12)
[2021-11-02] MEDS: POTASSIUM CHLORIDE 20MEQ/100ML 100 ML IV PRN (01:24)
[2021-11-02] MEDS: DEXTROSE 5 % AND 0.9 % NACL 1,000 ML IV SCH ×2 (01:37→23:50)
[2021-11-02] MEDS: ZOSYN 3.375GM+NS 50ML 50 ML IV SCH ×3 (02:08→18:34)
[2021-11-02 04:10] VITALS: BP 138/66
[2021-11-02 05:32] LABS: BASOPHILS % (AUTO) 0.3 % (0.0-5.0); EOSINOPHILS % (AUTO) 0.8 % (0.0-8.0); HEMATOCRIT 28.7 % (36-48); LYMPHOCYTES % (AUTO) 9.3 % (21.0-51.0); MEAN CORPUSCULAR HEMOGLOBIN 29.7 pg (27.0-33.0); MEAN CORPUSCULAR HGB CONC 32.4 g/dL (32.0-36.0); MEAN CORPUSCULAR VOLUME 91.7 fL (79-99); MONOCYTES % (AUTO) 4.1 % (3.0-13.0); PLATELET COUNT (AUTO) 236 K/uL (130-400); RED BLOOD CELL COUNT(AUTO) 3.13 MIL/uL (4.00-5.50); RED CELL DISTRIBUTION WIDTH 13.8 % (11.0-15.5); WHITE BLOOD COUNT (AUTO) 15.6 K/uL (4.8-10.8)
[2021-11-02 05:49] LABS: ALBUMIN 2.6 g/dL (3.5-5.0); BILIRUBIN,TOTAL 0.6 mg/dL (0.2-1.0); CREATININE 0.7 mg/dL (0.5-1.5); POTASSIUM 3.7 mmol/L (3.5-5.1); TOTAL PROTEIN, SERUM 5.8 g/dL (6.0-8.3)
[2021-11-02 08:00] VITALS: BP 133/67
[2021-11-02] MEDS: IODOSORB GEL 40GM TP SCH (09:00)
[2021-11-02] MEDS: DORZOLAMIDE HCL 2% 10ML DROPS OU SCH ×2 (09:00→22:22)
[2021-11-02] MEDS: PANTOPRAZOLE 40 MG/VIAL IVP SCH (10:28)
[2021-11-02] MEDS: ENOXAPARIN SODIUM 30 MG/0.3 ML SQ SCH (10:28)
[2021-11-02 12:02] VITALS: BP 154/75
[2021-11-02 16:00] VITALS: BP 164/71
[2021-11-02 20:00] VITALS: BP 159/88
[2021-11-02] MEDS: LATANOPROST 2.5 ML DROPS OP SCH (22:22)
[2021-11-03] VITALS: BP 158/74
[2021-11-03] MEDS: ZOSYN 3.375GM+NS 50ML 50 ML IV SCH ×3 (03:09→17:55)
[2021-11-03 04:00] VITALS: BP 166/90
[2021-11-03] MEDS: KETOROLAC 15MG/ML VIAL (15MG/ML) IV SCH ×4 (05:21→17:55)
[2021-11-03] MEDS: LEVOTHYROXINE 100MCG VIAL IV SCH (06:08)
[2021-11-03 06:34] LABS: BASOPHILS % (AUTO) 0.2 % (0.0-5.0); EOSINOPHILS % (AUTO) 2.4 % (0.0-8.0); HEMATOCRIT 29.8 % (36-48); LYMPHOCYTES % (AUTO) 11.6 % (21.0-51.0); MEAN CORPUSCULAR HEMOGLOBIN 30.4 pg (27.0-33.0); MEAN CORPUSCULAR HGB CONC 33.6 g/dL (32.0-36.0); MEAN CORPUSCULAR VOLUME 90.6 fL (79-99); MONOCYTES % (AUTO) 3.4 % (3.0-13.0); NEUTROPHILS % (AUTO) 81.8 % (40.0-77.0); PLATELET COUNT (AUTO) 222 K/uL (130-400); RED BLOOD CELL COUNT(AUTO) 3.29 MIL/uL (4.00-5.50); RED CELL DISTRIBUTION WIDTH 13.6 % (11.0-15.5); WHITE BLOOD COUNT (AUTO) 12.1 K/uL (4.8-10.8)
[2021-11-03 06:41] LABS: CREATININE 0.7 mg/dL (0.5-1.5)
[2021-11-03 06:47] LABS: POTASSIUM 2.8 mmol/L (3.5-5.1)
[2021-11-03] MEDS: POTASSIUM CHLORIDE 20MEQ/100ML 100 ML IV PRN ×2 (06:52→12:56)
[2021-11-03 07:30] VITALS: BP 171/83
[2021-11-03] MEDS: PANTOPRAZOLE 40 MG/VIAL IVP SCH (08:15)
[2021-11-03] MEDS: ENOXAPARIN SODIUM 30 MG/0.3 ML SQ SCH (08:15)
[2021-11-03] MEDS: DORZOLAMIDE HCL 2% 10ML DROPS OU SCH ×2 (08:16→21:39)
[2021-11-03] MEDS: IODOSORB GEL 40GM TP SCH (09:00)
[2021-11-03] MEDS ORDERED: LIDOCAINE HCL-MPF 1% 2ML VIAL ONE (12:06)
[2021-11-03] MEDS: HYDRALAZINE 20MG/ML VIAL IV PRN (12:34)
[2021-11-03] MEDS: DEXTROSE 5 % AND 0.9 % NACL 1,000 ML IV SCH (13:10)
[2021-11-03 16:00] VITALS: BP 156/75
[2021-11-03 20:00] VITALS: BP 164/69
[2021-11-03] MEDS: LATANOPROST 2.5 ML DROPS OP SCH (21:39)
[2021-11-04] VITALS: BP 156/77
[2021-11-04] MEDS: ZOSYN 3.375GM+NS 50ML 50 ML IV SCH ×3 (01:57→17:58)
[2021-11-04] MEDS: DEXTROSE 5 % AND 0.9 % NACL 1,000 ML IV SCH ×2 (02:50→15:50)
[2021-11-04 04:00] VITALS: BP 168/85
[2021-11-04] MEDS: KETOROLAC 15MG/ML VIAL (15MG/ML) IV SCH ×4 (05:20→18:08)
[2021-11-04 06:38] LABS: CREATININE 0.6 mg/dL (0.5-1.5); MAGNESIUM 1.5 mg/dL (1.80-2.40)
[2021-11-04 07:30] VITALS: BP 170/74
[2021-11-04] MEDS: MAGNESIUM 2GM PREMIX 50ML 50 ML IV PRN (07:45)
[2021-11-04] MEDS: PANTOPRAZOLE 40 MG/VIAL IVP SCH (07:51)
[2021-11-04] MEDS: ENOXAPARIN SODIUM 30 MG/0.3 ML SQ SCH (07:52)
[2021-11-04] MEDS: DORZOLAMIDE HCL 2% 10ML DROPS OU SCH ×2 (07:53→21:29)
[2021-11-04] MEDS: HYDRALAZINE 20MG/ML VIAL IV PRN ×2 (08:11→17:56)
[2021-11-04] MEDS: LEVOTHYROXINE 100MCG VIAL IV SCH (08:14)
[2021-11-04 11:00] VITALS: BP 170/78
[2021-11-04] MEDS ORDERED: LIDOCAINE HCL-MPF 1% 2ML VIAL ONE ×2 (11:10→16:42)
[2021-11-04] MEDS: LOSARTAN 25 MG TABLET PO SCH (12:55)
[2021-11-04] MEDS: ATENOLOL 50 MG TABLET PO SCH (12:56)
[2021-11-04 16:00] VITALS: BP 180/78
[2021-11-04] MEDS: POTASSIUM CHLORIDE 20MEQ/100ML 100 ML IV PRN (16:52)
[2021-11-04 20:00] VITALS: BP 115/70
[2021-11-04] MEDS: PRAVASTATIN SODIUM 20 MG PO SCH (21:00)
[2021-11-04] MEDS: LATANOPROST 2.5 ML DROPS OP SCH (21:29)
[2021-11-05] VITALS: BP 148/65
[2021-11-05] MEDS: ZOSYN 3.375GM+NS 50ML 50 ML IV SCH ×3 (02:56→17:48)
[2021-11-05 04:00] VITALS: BP 148/67
[2021-11-05] MEDS: DEXTROSE 5 % AND 0.9 % NACL 1,000 ML IV SCH (05:10)
[2021-11-05] MEDS: KETOROLAC 15MG/ML VIAL (15MG/ML) IV SCH ×3 (06:00→12:00)
[2021-11-05] MEDS: LEVOTHYROXINE 100 MCG TABLET PO SCH (06:15)
[2021-11-05] MEDS: LEVOTHYROXINE 100MCG VIAL IV SCH (06:20)
[2021-11-05 06:21] LABS: BASOPHILS % (AUTO) 0.4 % (0.0-5.0); EOSINOPHILS % (AUTO) 4.9 % (0.0-8.0); HEMATOCRIT 27.7 % (36-48); LYMPHOCYTES % (AUTO) 18.6 % (21.0-51.0); MEAN CORPUSCULAR HEMOGLOBIN 30.2 pg (27.0-33.0); MEAN CORPUSCULAR HGB CONC 34.3 g/dL (32.0-36.0); MEAN CORPUSCULAR VOLUME 87.9 fL (79-99); NEUTROPHILS % (AUTO) 67.9 % (40.0-77.0); PLATELET COUNT (AUTO) 254 K/uL (130-400); RED BLOOD CELL COUNT(AUTO) 3.15 MIL/uL (4.00-5.50); RED CELL DISTRIBUTION WIDTH 13.4 % (11.0-15.5); WHITE BLOOD COUNT (AUTO) 7.3 K/uL (4.8-10.8)
[2021-11-05 06:35] LABS: ALBUMIN 2.3 g/dL (3.5-5.0); BILIRUBIN,TOTAL 0.5 mg/dL (0.2-1.0); CREATININE 0.6 mg/dL (0.5-1.5); MAGNESIUM 1.6 mg/dL (1.80-2.40); POTASSIUM 3.2 mmol/L (3.5-5.1); TOTAL PROTEIN, SERUM 5.8 g/dL (6.0-8.3)
[2021-11-05 07:35] VITALS: BP 130/67
[2021-11-05] MEDS ORDERED: KCL 20 MEQ ERTAB PO ONE ×2 (08:30→11:45)
[2021-11-05] MEDS: PANTOPRAZOLE 40 MG/VIAL IVP SCH (10:05)
[2021-11-05] MEDS: IODOSORB GEL 40GM TP SCH ×2 (10:05→10:08)
[2021-11-05] MEDS: HYDROCHLOROTHIAZIDE 25 MG TABLET PO SCH (10:05)
[2021-11-05] MEDS: ATENOLOL 50 MG TABLET PO SCH (10:06)
[2021-11-05] MEDS: LOSARTAN 25 MG TABLET PO SCH (10:06)
[2021-11-05] MEDS: ENOXAPARIN SODIUM 30 MG/0.3 ML SQ SCH (10:06)
[2021-11-05 11:35] VITALS: BP 172/50
[2021-11-05] MEDS: MAGNESIUM 2GM PREMIX 50ML 50 ML IV PRN (11:59)
[2021-11-05] MEDS: DORZOLAMIDE HCL 2% 10ML DROPS OU SCH ×2 (12:03→22:28)
[2021-11-05 15:30] VITALS: BP 163/66
[2021-11-05] MEDS ORDERED: FUROSEMIDE 20MG VIAL IV ONE (16:30)
[2021-11-05] MEDS ORDERED: FUROSEMIDE 20MG VIAL IV SCH (18:00)
[2021-11-05 20:00] VITALS: BP 157/80
[2021-11-05] MEDS: PRAVASTATIN SODIUM 20 MG PO SCH (21:00)
[2021-11-05] MEDS: LATANOPROST 2.5 ML DROPS OP SCH (22:28)
[2021-11-06] VITALS: BP 152/75
[2021-11-06] MEDS: ZOSYN 3.375GM+NS 50ML 50 ML IV SCH ×3 (01:45→18:07)
[2021-11-06 04:00] VITALS: BP 152/69
[2021-11-06] MEDS: LEVOTHYROXINE 100 MCG TABLET PO SCH (07:33)
[2021-11-06 07:35] VITALS: BP 159/73
[2021-11-06 09:07] LABS: CREATININE 0.7 mg/dL (0.5-1.5); MAGNESIUM 1.7 mg/dL (1.80-2.40)
[2021-11-06] MEDS: PANTOPRAZOLE 40 MG/VIAL IVP SCH (10:02)
[2021-11-06] MEDS: ENOXAPARIN SODIUM 30 MG/0.3 ML SQ SCH (10:02)
[2021-11-06] MEDS: LOSARTAN 25 MG TABLET PO SCH (10:02)
[2021-11-06] MEDS: HYDROCHLOROTHIAZIDE 25 MG TABLET PO SCH (10:02)
[2021-11-06] MEDS: ATENOLOL 50 MG TABLET PO SCH (10:03)
[2021-11-06] MEDS: IODOSORB GEL 40GM TP SCH (10:08)
[2021-11-06] MEDS: DORZOLAMIDE HCL 2% 10ML DROPS OU SCH (10:10)
[2021-11-06] MEDS ORDERED: KCL 20 MEQ ERTAB PO ONE (10:30)
[2021-11-06 11:35] VITALS: BP 143/62
[2021-11-06] MEDS: MAGNESIUM 2GM PREMIX 50ML 50 ML IV PRN (12:11)
[2021-11-06 15:25] VITALS: BP 159/76
[2021-11-06 20:00] VITALS: BP 142/72
[2021-11-06] MEDS: PRAVASTATIN SODIUM 20 MG PO SCH (21:00)
[2021-11-07] VITALS: BP 138/67
[2021-11-07] MEDS: LATANOPROST 2.5 ML DROPS OP SCH (00:42)
[2021-11-07] MEDS: DORZOLAMIDE HCL 2% 10ML DROPS OU SCH ×2 (00:43→09:41)
[2021-11-07] MEDS: ZOSYN 3.375GM+NS 50ML 50 ML IV SCH ×2 (01:16→10:00)
[2021-11-07 04:00] VITALS: BP 149/76
[2021-11-07] MEDS: LEVOTHYROXINE 100 MCG TABLET PO SCH (05:29)
[2021-11-07 06:23] LABS: CREATININE 0.7 mg/dL (0.5-1.5); MAGNESIUM 1.5 mg/dL (1.80-2.40); POTASSIUM 3.4 mmol/L (3.5-5.1)
[2021-11-07 07:54] VITALS: BP 148/92
[2021-11-07] MEDS: IODOSORB GEL 40GM TP SCH (09:00)
[2021-11-07] MEDS: HYDROCHLOROTHIAZIDE 25 MG TABLET PO SCH (09:39)
[2021-11-07] MEDS: LOSARTAN 25 MG TABLET PO SCH (09:40)
[2021-11-07] MEDS: ENOXAPARIN SODIUM 30 MG/0.3 ML SQ SCH (09:40)
[2021-11-07] MEDS: ATENOLOL 50 MG TABLET PO SCH (09:40)
[2021-11-07] MEDS: PANTOPRAZOLE 40 MG/VIAL IVP SCH (09:41)
[2021-11-07 12:16] VITALS: BP 126/62
[2021-11-07 16:43] VITALS: BP 133/68
== END 2021-11-07 17:20 | disposition home or self-care (01) | DRG 335 ==
LOC: DAHIP 10-31 08:39 → 3CH 10-31 15:30
PROVIDERS: ADMIT Surgery; ATTEND Surgery
PROC: 0DBU0ZZ Excision of Omentum, Open Approach (ICD-10-PCS; principal; 2021-10-31 10:00)
PROC: 0DNW0ZZ Release Peritoneum, Open Approach (ICD-10-PCS; 2021-10-31 10:00)
PROC: 0DSL0ZZ Reposition Transverse Colon, Open Approach (ICD-10-PCS; 2021-10-31 10:00)
DX: K66.0 Peritoneal adhesions (postprocedural) (postinfection) (principal); E43 Unspecified severe protein-calorie malnutrition; E87.1 Hypo-osmolality and hyponatremia; E78.5 Hyperlipidemia, unspecified; E87.6 Hypokalemia; E03.9 Hypothyroidism, unspecified; I10 Essential (primary) hypertension; R54 Age-related physical debility; Z82.49 Family history of ischemic heart disease and other diseases of the circulatory system
CPT/HCPCS: 36415; 71045; 80048; 80053; 82533; 83735; 83930; 84100; 84132; 84443; 85025; 85027; 85610; 85730; 87635; 93005; 97039; A4344; A4606; C9113; G0378; J0171; J0330; J0360; J0690; J1650; J1885; J1940; J2001; J2250; J2370; J2405; J2543; J2704; J2710; J3010; J3475; J3480; J3490; J7042; J7120; P9045

== ENCOUNTER 2023-05-30 04:46 | Emergency (ER) | payer OTHER ==
[~2023-05-30] VITALS: Ht 160 cm; Wt 63.5 kg
[~2023-05-30 04:46] MED LIST changes: +ATEN50TA PO; +DORZ10DR19 OU; +LEVO100T4 PO; +PRAV20TA4 PO
[2023-05-30 05:15] LABS: BASOPHILS # (AUTO) 0.03 K/uL (0.00-0.20); BASOPHILS % (AUTO) 0.4 % (0.0-5.0); EOSINOPHILS # (AUTO) 0.02 K/uL (0.00-0.70); EOSINOPHILS % (AUTO) 0.3 % (0.0-8.0); HEMATOCRIT 38.2 % (36-48); IMMATURE GRANULOCYTE ABSOLUTE 0.03 K/uL (0-1); LYMPHOCYTES # (AUTO) 1.6 K/uL (1.0-4.8); LYMPHOCYTES % (AUTO) 22.7 % (21.0-51.0); MEAN CORPUSCULAR HEMOGLOBIN 30.8 pg (27.0-33.0); MEAN CORPUSCULAR HGB CONC 34.8 g/dL (32.0-36.0); MEAN CORPUSCULAR VOLUME 88.4 fL (79-99); MONOCYTES # (AUTO) 0.4 K/uL (0.1-1.0); MONOCYTES % (AUTO) 5.4 % (3.0-13.0); NEUTROPHILS % (AUTO) 70.8 % (40.0-77.0); PLATELET COUNT (AUTO) 291 K/uL (130-400); RED BLOOD CELL COUNT(AUTO) 4.32 MIL/uL (4.00-5.50); WHITE BLOOD COUNT (AUTO) 7.1 K/uL (4.8-10.8)
[2023-05-30 05:25] LABS: CREATININE 0.7 mg/dL (0.5-1.5); POTASSIUM 3.7 mmol/L (3.5-5.1)
[2023-05-30 05:30] LABS: ALBUMIN 3.8 g/dL (3.5-5.0); BILIRUBIN,TOTAL 0.8 mg/dL (0.2-1.0); TOTAL PROTEIN, SERUM 7.6 g/dL (6.0-8.3)
[2023-05-30 05:45] LABS: SARS-CoV-2, RNA, NAAT NEGATIVE SARS CoV-2 (NEGATIVE)
[2023-05-30 05:49] LABS: INFLUENZA TYPE A Negative For Type A (NEGATIVE); INFLUENZA TYPE B Negative For Type B (NEGATIVE)
[2023-05-30] MEDS: 0.9% NACL 500ML IV.SOLN 500 ML IV ONE (08:32)
[2023-05-30 10:07] LABS: APPEARANCE,URINE CLEAR (CLEAR); BILIRUBIN,URINE NEGATIVE (NEGATIVE); COLOR,URINE LIGHT-YELLOW (YELLOW); GLUCOSE, URINE (UA) NEGATIVE (NEGATIVE); KETONES,URINE NEGATIVE (NEGATIVE); LEUKOCYTE ESTERASE ,URINE NEGATIVE Leu/uL (NEGATIVE); NITRATE,URINE NEGATIVE (NEGATIVE); OCCULT BLOOD,URINE NEGATIVE (NEGATIVE); PROTEIN,URINE NEGATIVE (NEGATIVE); UROBILINOGEN,URINE 0.2 mg/dL (0.2-1.0)
[2023-05-30 10:11] LABS: ADD UA MICROSCOPIC NO
[2023-05-30] MEDS: MAGNESIUM OXIDE 400 MG TABLET PO ONE (11:48)
[2023-05-30 11:50] VITALS: BP 132/68; PULSE 74; RESP 18; O2SAT 99
== END 2023-05-30 12:03 | disposition home or self-care (01) ==
LOC: EDH 04:46
DX: R42 Dizziness and giddiness (principal); M54.2 Cervicalgia; E83.42 Hypomagnesemia; I10 Essential (primary) hypertension; Z79.890 Hormone replacement therapy; Z79.899 Other long term (current) drug therapy; Z90.49 Acquired absence of other specified parts of digestive tract; Z20.822 Contact with and (suspected) exposure to COVID-19
CPT/HCPCS: 99285; 96360; 70450; 71045; 87635; 83735; 84484; 80053; 83880; 85025; 87804 ×2; 81003; 36415; 93005; C9803; J7040

== ENCOUNTER → 2024-06-28 | Outpatient (CLI) | payer OTHER ==
--- NOTE | 2024-06-28 15:06 | HMCIMG ---
ABD 1VW REASON: CONSTIPATION FINDINGS: Single image of the abdomen was obtained. Bowel gas pattern is normal. Bones and soft tissues appear unremarkable. There are no abnormal calcifications. There is no evidence of foreign body. There is a moderate amount solid fecal material in the a sending and transverse colon which could reflect constipation, there is no evidence of fecal impaction. IMPRESSION: 1 per possible constipation, no evidence of fecal impaction.
== END | disposition home or self-care (01) ==
LOC: RAH 12:28
PROVIDERS: ATTEND Nurse Practitioner Family
DX: K59.00 Constipation, unspecified (principal)
CPT/HCPCS: 74018

== ENCOUNTER 2024-07-16 07:44 | Emergency (ER) | payer OTHER ==
[~2024-07-16] VITALS: Ht 162.6 cm; Wt 60.8 kg
--- NOTE | 2024-07-16 08:08 | ERN ---
General Chief Complaint: Abdominal Pain Stated Complaint: ABDOMINAL PAIN Time Seen by MD: 07:48 Source: patient History of Present Illness Initial Comments Patient is a an 88-year-old female coming in to be evaluated for epigastric pain. Per patient she has a extensive history has been discomfort has been seen by her PCP and was referred to handkerchief cutter. Patient states that she has not been able to see a handkerchief cutter because her scheduled appointment is still couple of weeks ago. She states that the pain is present in the epigastric region Allergies: Coded Allergies: No Known Drug Allergies (Unverified Allergy, Unknown, 03/11/16) Home Meds Reported Medications Atenolol (Atenolol) 50 Mg Tablet, 50 MG PO DAILY, TAB 10/30/21 Dorzolamide HCl/Pf (Dorzolamide 2% Eye Drop) 10 Ml Drops, 1 DROP OU BID, DROP 10/30/21 Levothyroxine Sodium (Synthroid 100 Mcg Tab) 100 Mcg Tablet, 100 MCG PO DAILY, T AB 10/30/21 Pravastatin Sodium (Pravastatin Sodium) 20 Mg Tablet, 20 MG PO HS, TAB 10/30/21 Latanoprost/Pf (Latanoprost 0.005% Eye Drop) 7.5 Ml Drops, 7.5 ML OP HS, DROP 11/07/19 Losartan Potassium (Losartan Potassium) 25 Mg Tablet, 25 MG PO HS, TAB 11/07/19 Hydrochlorothiazide (Hydrochlorothiazide) 12.5 Mg Tablet, 12.5 MG PO DAILY, TAB 11/07/19 Past Medical History Past Medical History: Diverticulitis, Hypertension Past Surgical History: Appendectomy, Hysterectomy, Cholecystectomy Surgical History Other: EYE, COLOSTOMY TAKE DOWN Family History Family History: HTN Social History Social History: Negative, Lives with family ROS Dictation CONSTITUTIONAL: No chills, no fever, no weakness, no diaphoresis, no malaise. HEAD/FACE: No signs of trauma. EENT: No eye pain, no blurred vision, no tearing, no double vision, no ear pain, no ear discharge, no nose pain, no nasal congestion, no throat pain, no throat swelling, no mouth pain. RESPIRATORY: No cough, no orthopnea, no SOB, no stridor, no wheezing. CARDIOVASCULAR: No chest pain, no edema, no palpitations, no syncope. GASTROINTESTINAL/ABDOMINAL: No abdominal pain, no constipation, no diarrhea, no nausea, no vomiting. GENITOURINARY: No abnormal discharge, no dysuria, no frequent urination, no hematuria. No complaints of pain in the genitals. MUSCULOSKELETAL: No back pain, no gout, no joint pain, no joint swelling, no muscle pain, no muscle stiffness, no neck pain. INTEGUMENTARY: No change in color, no change in hair/nails, no dryness, no lesion, no lumps, no rash. NEUROLOGICAL/PSYCH: No anxiety, not depressed, no emotional problem, no headache, no numbness, no pre-existing deficit, no history of seizures, no tremors, no weakness. HEMATOLOGIC/LYMPHATIC: Not anemic, no history of blood clots, no apparent bl eeding, no bruising, glands not swollen. All Systems Negative, Except as Noted. Physical Exam Physical Exam Dictation VITAL SIGNS: Reviewed. GENERAL APPEARANCE: Alert, oriented x3, no acute distress, obese. HEAD AND FACE: Non-traumatic. EYES: PERRL, pink conjunctivas, eyelid no trauma, anterior chamber clear. EARS: Pinnas intact and no signs of trauma or erythema. Ear canals clear and no discharge. TMs no erythema. NOSE: No discharge, no bleeding. OROPHARYNX: Mouth normal, teeth no caries, tongue pink. Pharynx clear, no erythema. Tonsils no exudates, no abscesses noted. Mucous membrane moist. NECK: Supple, non-tender, no thyromegaly, no masses, no JVD, no bruits. BREAST: Deferred. CHEST: No tenderness, no crepitus, no paradoxical movement, no retractions. LUNGS: Clear, well-ventilated, symmetric, no rales, no wheezing, no rhonchi, no stridor, good breath sounds bilaterally. HEART: Regular rate, regular rhythm, no murmur, no gallops. VASCULAR: No peripheral edema. ABDOMEN: Soft, positive bowel sounds, nondistended, no guarding, nontender, no rebound, no masses no hepatomegaly, no splenomegaly, no Connors's sign, no hernias. RECTAL: Deferred. GENITAL: Deferred. NEUROLOGICAL: Normal speech, gross motor function intact, gross sensory function intact. MUSCULOSKELETAL: Neck nontender, full range of motion, back nontender, full ran ge of motion. EXTREMITIES: Nontender, full range of motion. SKIN: Color pink, dry, no turgor, no rash, no lacerations, no abrasions, no contusions. LYMPHATICS: Deferred. Results Laboratory and Microbiology Lab and Micro Result Laboratory Tests Test 07/16/24 08:36 07/16/24 10:00 White Blood Count 6.5 K/uL (4.8-10.8) Red Blood Count 4.09 MIL/uL (4.00-5.50) Hemoglobin 12.8 g/dL (12.0-16.0) Hematocrit 36.8 % (36-48) Mean Corpuscular Volume 90.0 fL (79-99) Mean Corpuscular Hemoglobin 31.3 pg (27.0-33.0) Mean Corpuscular Hemoglobin Concent 34.8 g/dL (32.0-36.0) Red Cell Distribution Width 12.5 % (11.0-15.5) Platelet Count 330 K/uL (130-400) Mean Platelet Volume 9.3 fL (7.5-10.5) Immature Granulocyte % (Auto) 0.5 % (0-1) Neutrophils (%) (Auto) 72.0 % (40.0-77.0) Lymphocytes (%) (Auto) 20.6 % (21.0-51.0) L Monocytes (%) (Auto) 5.8 % (3.0-13.0) Eosinophils (%) (Auto) 0.9 % (0.0-8.0) Basophils (%) (Auto) 0.2 % (0.0-5.0) Neutrophils # (Auto) 4.7 K/uL (1.8-7.7) Lymphocytes # (Auto) 1.3 K/uL (1.0-4.8) Monocytes # (Auto) 0.4 K/uL (0.1-1.0) Eosinophils # (Auto) 0.06 K/uL (0.00-0.70) Basophils # (Auto) 0.01 K/uL (0.00-0.20) Absolute Immature Granulocyte (auto 0.03 K/uL (0-1) Nucleated Red Blood Cells 0.0 % (0.0-0.19) Sodium Level 130 mmol/L (136-145) L Potassium Level 4.0 mmol/L (3.5-5.1) Chloride Level 92 mmol/L (101-111) L Carbon Dioxide Level 27 mmol/L (21-32) Blood Urea Nitrogen 14 mg/dL (7-18) Creatinine 0.7 mg/dL (0.5-1.0) Glomerular Filtration Rate Calc 83 mL/min (>90) Random Glucose 104 mg/dL (70-105) Total Calcium 9.8 mg/dL (8.5-10.1) Total Bilirubin 0.8 mg/dL (0.2-1.0) Aspartate Amino Transf (AST/SGOT) 27 U/L (10-37) Alanine Aminotransferase (ALT/SGPT) 30 U/L (12-78) Alkaline Phosphatase 69 U/L (50-136) Total Creatine Kinase 144 U/L (21-232) # Troponin I High Sensitivity 8 ng/L (4-50) Total Protein 8.2 g/dL (6.0-8.3) Albumin 3.9 g/dL (3.5-5.0) Lipase 36 U/L (16-77) Urine Color LIGHT-YELLOW (YELLOW) Urine Appearance HAZY (CLEAR) Urine pH 7.0 (5.0-8.0) Urine Specific [place] 1.008 (1.001-1.031) Urine Protein NEGATIVE mg/dL (NEGATIVE) Urine Glucose (UA) NEGATIVE mg/dL (NEGATIVE) Urine Ketones NEGATIVE mg/dL (NEGATIVE) Urine Occult Blood NEGATIVE (NEGATIVE) Urine Nitrate NEGATIVE (NEGATIVE) Urine Bilirubin NEGATIVE mg/dL (NEGATIVE) Urine Urobilinogen 0.2 mg/dL (0.2-1.0) Urine Leukocyte Esterase 500 [place]/uL (NEGATIVE) H Urine RBC 6-10 /HPF (0-1) H Urine WBC TNTC /HPF (0-1) H Urine Squamous Epithelial Cells RARE /HPF (0-2) Urine Bacteria MOD /HPF (None Seen) Labs Reviewed?: Yes EKG/XRAY/US/CT/MRI EKG Comment 07/16/2024 time 8:08 a.m. Ventricular rate 63 Sinus rhythm [place] [address] wave elevation or depression MDM MDM: Differential diagnosis: GERD, gastritis, peptic ulcer disease, UTI Patient is a 88-year-old female coming in to be evaluated for epigastric discomfort. Patient states that he has been having this discomfort for several months. P.o. challenge passed. Laboratory workup positive for urinary tract infection liver enzymes and pancreatic enzymes within normal limits. Patient feels better he will be discharged in stable condition with a patient is pending an endoscopy by GI next week. Because initially she was presenting with discomfort generalized I offered her a CT but patient refused states he has been follow up with her handkerchief cutter to continue with the endoscopy. Throughout ER visit patient has been stable. ED Course Orders Procedure Category Date Status Time Cbc With Differential LAB 07/16/24 Complete 07:50 Comprehensive LAB 07/16/24 Complete Metabolic Panel 07:50 Troponin I High LAB 07/16/24 Complete Sensitivity 07:50 Urinalysis Profile LAB 07/16/24 Complete 07:50 12 Lead Ekg Tracing- EKG 07/16/24 Complete Technical 07:50 0.9%Nacl 1000ml (Ns PHA 07/16/24 Complete 1000ml) 08:00 Ondansetron 4mg Inj PHA 07/16/24 Complete (Zofran 4mg Inj) 08:00 Lidocaine Hcl 2% PHA 07/16/24 Complete Viscous (Lidocaine Hcl 08:00 Mag/Alum/Simeth 30ml PHA 07/16/24 Complete (Maalox Plus 30ml) 08:00 Pantoprazole 40mg Inj PHA 07/16/24 Complete (Protonix 40mg Inj 08:00 Creatine Kinase, Total LAB 07/16/24 Complete 07:50 Lipase LAB 07/16/24 Complete 07:50 Culture Urine CHRISTA 07/16/24 In Process 10:24 Ceftriaxone 1g Vial PHA 07/16/24 Verified (Rocephine 1g Inj) 11:00 Current Medications Medications (Trade) Dose Ordered Sig/Ron Route PRN Reason Start Time Stop Time Status Last Admin Dose Admin Al Hydroxide/Mg Hydroxide (MAALox PLUS 30ML) 30 ml ONCE ONCE PO 07/16/24 08:00 07/16/24 08:01 DC 07/16/24 08:13 Lidocaine HCl (Lidocaine HCl 2% Viscous) 10 ml ONCE ONCE PO 07/16/24 08:00 07/16/24 08:01 DC 07/16/24 08:13 Ondansetron HCl (zoFRAN 4MG INJ) 4 mg ONCE ONCE IVP 07/16/24 08:00 07/16/24 08:01 DC 07/16/24 08:13 Pantoprazole Sodium (PROTonix 40MG INJ) 40 mg ONCE ONCE IVP 07/16/24 08:00 07/16/24 08:01 DC 07/16/24 08:14 Sodium Chloride 1,000 ml @ 0 mls/hr ONCE ONCE IV 07/16/24 08:00 07/16/24 08:01 DC 07/16/24 08:14 Vital Signs Date Time Temp Pulse Resp B/P (MAP) Pulse Ox O2 Delivery O2 Flow Rate FiO2 07/16/24 10:18 98.8 57 16 136/54 97 Room Air* 0 21 07/16/24 07:46 98.8 55 16 141/84 98 Room Air 0 07/16/24 07:45 98.8 55 16 141/84 99 Room Air* 0 21 DX & DISP Disposition: Discharge Departure Impression: Primary Impression: UTI (urinary tract infection) Additional Impression: Gastritis Condition: Stable Scripts Dexlansoprazole (Dexilant) 30 Mg Cap. 1 CAP PO DAILY for 30 Days, #30 CAP 0 Refills Prov: ARACELI CHERRY MD 07/16/24 Additional Instructions: FOLLOW-UP WITH PRIMARY CARE PROVIDER IN 1 TO 2 DAYS. TAKE MEDICATIONS DIRECTED HERE IN THE EMERGENCY ROOM. OKAY TO CONTINUE HOME MEDICATIONS UNLESS OTHERWISE DISCUSSED DURING YOUR VISIT IN THE EMERGENCY ROOM TODAY. RETURN TO YOUR NEAREST EMERGENCY ROOM IF SYMPTOMS WORSEN OR IF THERE IS NO IMPROVEMENT. CALL 911 IF YOU NEED IMMEDIATE ASSISTANCE. TAKE TYLENOL [id number] NEEDED AND IF NO CONTRAINDICATIONS ARE PRESENT. INCREASE ORAL HYDRATION. A WOUND CULTURE OR URINE CULTURE WAS ORDERED HERE IN THE EMERGENCY ROOM DEPARTMENT PLEASE FOLLOW-UP WITH PRIMARY CARE PROVIDER AND ADVISE THEM TO GET REPEAT PORTS FROM OUR FACILITY. IF YOU HAD ANY REGAN WRAP/SPLINTS THAT WERE APPLIED HERE, P LEASE DO NOT REMOVE THEM UNTIL YOU SEE YOUR PRIMARY CARE OR SPECIALTY. Referrals: Referrals: OJ MANZANARES MD (PCP) Time of Disposition: 10:58 ARACELI CHERRY MD Jul 16, 2024 08:08
[2024-07-16] MEDS: MAG/ALUM/SIMETH 30 ML UDCUP PO ONE (08:13)
[2024-07-16] MEDS: ondanSETRON 4MG INJ IVP ONE (08:13)
[2024-07-16] MEDS: LIDOCAINE HCL 2% VISCOUS 15 ML UDCUP PO ONE (08:13)
[2024-07-16] MEDS: 0.9%NACL 1000ML 1,000 ML IV ONE (08:14)
[2024-07-16] MEDS: PANTOPrazole 40 MG/VIAL IVP ONE (08:14)
--- NOTE | 2024-07-16 08:17 | EKG ---
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
[2024-07-16 08:56] LABS: BASOPHILS # (AUTO) 0.01 K/uL (0.00-0.20); BASOPHILS % (AUTO) 0.2 % (0.0-5.0); EOSINOPHILS # (AUTO) 0.06 K/uL (0.00-0.70); EOSINOPHILS % (AUTO) 0.9 % (0.0-8.0); HEMATOCRIT 36.8 % (36-48); IMMATURE GRANULOCYTE ABSOLUTE 0.03 K/uL (0-1); LYMPHOCYTES # (AUTO) 1.3 K/uL (1.0-4.8); LYMPHOCYTES % (AUTO) 20.6 % (21.0-51.0); MEAN CORPUSCULAR HEMOGLOBIN 31.3 pg (27.0-33.0); MEAN CORPUSCULAR HGB CONC 34.8 g/dL (32.0-36.0); MONOCYTES # (AUTO) 0.4 K/uL (0.1-1.0); MONOCYTES % (AUTO) 5.8 % (3.0-13.0); NEUTROPHILS # (AUTO) 4.7 K/uL (1.8-7.7); PLATELET COUNT (AUTO) 330 K/uL (130-400); RED BLOOD CELL COUNT(AUTO) 4.09 MIL/uL (4.00-5.50); RED CELL DISTRIBUTION WIDTH 12.5 % (11.0-15.5); WHITE BLOOD COUNT (AUTO) 6.5 K/uL (4.8-10.8)
[2024-07-16 09:03] LABS: CREATININE 0.7 mg/dL (0.5-1.0)
[2024-07-16 09:08] LABS: ALBUMIN 3.9 g/dL (3.5-5.0); BILIRUBIN,TOTAL 0.8 mg/dL (0.2-1.0); TOTAL PROTEIN, SERUM 8.2 g/dL (6.0-8.3)
[2024-07-16 10:23] LABS: ADD UA MICROSCOPIC YES; APPEARANCE,URINE HAZY (CLEAR); BILIRUBIN,URINE NEGATIVE (NEGATIVE); COLOR,URINE LIGHT-YELLOW (YELLOW); GLUCOSE, URINE (UA) NEGATIVE (NEGATIVE); KETONES,URINE NEGATIVE (NEGATIVE); LEUKOCYTE ESTERASE ,URINE 500 Leu/uL (NEGATIVE); NITRATE,URINE NEGATIVE (NEGATIVE); OCCULT BLOOD,URINE NEGATIVE (NEGATIVE); PROTEIN,URINE NEGATIVE (NEGATIVE); UROBILINOGEN,URINE 0.2 mg/dL (0.2-1.0)
[2024-07-16 10:34] LABS: BACTERIA,URINE MOD /HPF (None Seen); SQUAMOUS EPITHELIAL CELL,UR RARE /HPF (0-2); WBC,URINE TNTC /HPF (0-1)
[2024-07-16] MEDS ORDERED: DEXL30CA3 PO (10:58)
[2024-07-16] MEDS: cefTRIAXone 1G VIAL IVPB ONE (11:20)
[2024-07-16 12:10] VITALS: BP 163/54; PULSE 62; RESP 16; TEMP 98.8; O2SAT 98
== END 2024-07-16 11:58 | disposition home or self-care (01) ==
LOC: EDH 07:44
DX: K29.70 Gastritis, unspecified, without bleeding (principal); N39.0 Urinary tract infection, site not specified; I10 Essential (primary) hypertension; Z79.890 Hormone replacement therapy; Z90.49 Acquired absence of other specified parts of digestive tract; Z90.710 Acquired absence of both cervix and uterus
CPT/HCPCS: 99284; 96374; 96375; 96361; 82550; 84484; 80053; 83690; 85025; 87086 ×2; 87186; 81001; 36415; 93005; J7030; J0696; J2405; J2470

== ENCOUNTER → 2024-09-03 | Outpatient (CLI) | payer OTHER ==
[~2024-09-03] MED LIST changes: +DEXL30CA3 PO
--- NOTE | 2024-09-03 16:55 | HMCIMG ---
RIBS UNILAT 2V RT HISTORY: Status post fall COMPARISON: None TECHNIQUE: Images of the right ribs were obtained FINDINGS: There is no acute displaced fracture or dislocation. Degenerative changes are seen. IMPRESSION: 1. Findings as described above.
--- NOTE | 2024-09-03 16:56 | HMCIMG ---
SHOULDER COMP 2+VWS LT HISTORY: Pain COMPARISON: None TECHNIQUE: 2 images of the left shoulder were obtained FINDINGS: There is no acute displaced fracture or dislocation. Degenerative changes are seen. IMPRESSION: 1. Findings as described above.
--- NOTE | 2024-09-03 16:56 | HMCIMG ---
ELBOW 2VWS LT HISTORY: Pain COMPARISON: None TECHNIQUE: 2 images of the left forearm were obtained. FINDINGS: There is no acute displaced fracture or dislocation. There is soft tissue swelling. Degenerative changes are seen. IMPRESSION: 1. Findings as described above.
--- NOTE | 2024-09-03 16:56 | HMCIMG ---
HUMERUS 2+VWS LT HISTORY: Pain COMPARISON: None TECHNIQUE: 2 images of the left humerus were obtained. FINDINGS: There is no acute displaced fracture or dislocation. Degenerative changes are seen. IMPRESSION: 1. Findings as described above.
== END | disposition home or self-care (01) ==
LOC: RAH 10:43
PROVIDERS: ATTEND Internal Medicine
DX: S29.9XXA Unspecified injury of thorax, initial encounter (principal); W19.XXXA Unspecified fall, initial encounter; M79.602 Pain in left arm; M79.89 Other specified soft tissue disorders; M19.022 Primary osteoarthritis, left elbow; M19.012 Primary osteoarthritis, left shoulder; M25.512 Pain in left shoulder; X58.XXXA Exposure to other specified factors, initial encounter; Y93.89 Activity, other specified; Y92.89 Other specified places as the place of occurrence of the external cause; Y99.8 Other external cause status
CPT/HCPCS: 71100; 73030; 73060; 73070

== ENCOUNTER → 2025-01-26 | Outpatient (CLI) | payer OTHER ==
[~2025-01-26] MED LIST changes: -PRAV20TA4 PO; +PRAV20TA59 PO
--- NOTE | 2025-01-27 06:52 | HMCIMG ---
EXAM: CR right Knee, 3 views. CLINICAL HISTORY: Pain in the right knee. COMPARISON: None provided. FINDINGS: Mild osteopenia. 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 Moderate suprapatellar knee joint effusion. No acute fracture or aggressively appearing osseous lesion. The soft tissues are unremarkable. IMPRESSION: No acute osseous abnormality. Mild osteopenia. 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 Moderate suprapatellar knee joint effusion. /[place]
== END | disposition home or self-care (01) ==
LOC: RAH 09:59
PROVIDERS: ATTEND Internal Medicine
DX: M17.11 Unilateral primary osteoarthritis, right knee (principal); M85.88 Other specified disorders of bone density and structure, other site; M25.461 Effusion, right knee; M25.561 Pain in right knee
CPT/HCPCS: 73560

== ENCOUNTER 2025-03-22 04:56 | Observation (INO) | payer OTHER ==
[~2025-03-22] VITALS: Ht 154.9 cm; Wt 57.2 kg
[2025-03-22] MEDS: LACTATED RINGERS 1000ML IV STA (05:29)
[2025-03-22 05:40] LABS: IMMATURE GRANULOCYTE ABSOLUTE 0.06 K/uL (0-1); NUCLEATED RED BLOOD CELLS 0.0 % (0.0-0.19); PLATELET COUNT (AUTO) 300 K/uL (130-400); RED BLOOD CELL COUNT(AUTO) 3.58 MIL/uL (4.00-5.50); RED CELL DISTRIBUTION WIDTH 12.8 % (11.0-15.5); WHITE BLOOD COUNT (AUTO) 15.9 K/uL (4.8-10.8)
[2025-03-22] MEDS: LACTATED RINGERS IV ONE (05:40)
--- NOTE | 2025-03-22 05:47 | ERN ---
General Chief Complaint: Weakness Stated Complaint: C/O WEAKNESS, N X V X DIARRHEA Time Seen by MD: 05:02 Source: patient History of Present Illness Initial Comments 89-year-old female with a history of hypertension and hypothyroidism has had persistent nausea with no emesis and large amounts of diarrhea comes in feeling weak tachycardic and with a low blood pressure. Sepsis alert was called based on heart rate pressure and temperature. Patient has no other symptoms. No fevers no chills no chest pain no shortness of breath no change in urination. Allergies: Coded Allergies: No Known Drug Allergies (Unverified Allergy, Unknown, 03/11/16) Home Meds Active Scripts Dexlansoprazole (Dexilant) 30 Mg Cap., 1 CAP PO DAILY for 30 Days, #30 CAP 0 Refills Prov:ARACELI CHERRY MD 07/16/24 Reported Medications Atenolol (Atenolol) 50 Mg Tablet, 50 MG PO DAILY, TAB 10/30/21 Dorzolamide HCl/Pf (Dorzolamide 2% Eye Drop) 10 Ml Drops, 1 DROP OU BID, DROP 10/30/21 Levothyroxine Sodium (Synthroid 100 Mcg Tab) 100 Mcg Tablet, 100 MCG PO DAILY, TAB 10/30/21 Pravastatin Sodium (Pravastatin Sodium) 20 Mg Tablet, 20 MG PO HS, TAB 10/30/21 Latanoprost/Pf (Latanoprost 0.005% Eye Drop) 7.5 Ml Drops, 7.5 ML OP HS, DROP 11/07/19 Losartan Potassium (Losartan Potassium) 25 Mg Tablet, 25 MG PO HS, TAB 11/07/19 Hydrochlorothiazide (Hydrochlorothiazide) 12.5 Mg Tablet, 12.5 MG PO DAILY, TAB 11/07/19 Past Medical History Past Medical History: Hypertension, Hypothyroid Past Surgical History: Other Surgical History Other: EYE, COLOSTOMY TAKE DOWN Family History Family History: HTN Social History Social History: Negative, Lives with family Constitutional: (-) chills, (-) diaphoresis, (-) fever, (-) malaise, (-) weakness, (-) other documentation EENTM: (-) eye pain, (-) blurred vision, (-) tearing, (-) double vision, (-) ear pain, (-) ear discharge, (-) nose pain, (-) nose congestion, (-) throat pain, (-) Throat swelling, (-) mouth pain, (-) tooth pain, (-) mouth swelling, (-) other documentation Respiratory: (-) cough, (-) orthopnea, (-) short of breath, (-) stridor, (-) wheezing, (-) other documentation Cardiovascular: (-) chest pain, (-) edema, (-) palpitations, (-) syncope, (-) dyspnea on exertion, (-) other documentation Gastrointestinal/Abdominal: (+) nausea, (+) diarrhea Genitourinary: (-) vaginal discharge, (-) vaginal bleeding, (-) dysuria, (-) frequency, (-) hematuria, (-) pain, (-) other documentation Musculoskeletal: (-) Neck pain, (-) back pain, (-) Flank Pain, (-) joint pain, (-) joint swelling, (-) muscle pain, (-) muscle stiffness, (-) gout, (-) other documentation Physical Exam General Appearance: (+) mild distress Orientation: (+) alert, (+) oriented x 3 Head/Face Trauma: No Eye: bilateral eye normal inspection, bilateral eye PERRL, bilateral eye EOMI Ear, Nose, Throat: (+) hearing grossly normal, (+) normal ENT inspection, (+) moist mucous membraine Neck: (+) normal inspection, (+) supple, (+) full range of motion Respiratory: (+) lungs clear, (+) well ventilated Heart: (+) regular, (+) no gallop Vascular: (+) no edema Vascular Comment Weak pulse Gastrointestinal: (+) soft, (+) non-tender, (+) bowel sound present Results Laboratory and Microbiology Lab and Micro Result Laboratory Tests Test 03/22/25 05:25 White Blood Count 15.9 K/uL (4.8-10.8) H Red Blood Count 3.58 MIL/uL (4.00-5.50) L Hemoglobin 11.4 g/dL (12.0-16.0) L Hematocrit 32.1 % (36-48) L Mean Corpuscular Volume 89.7 fL (79-99) Mean Corpuscular Hemoglobin 31.8 pg (27.0-33.0) Mean Corpuscular Hemoglobin Concent 35.5 g/dL (32.0-36.0) Red Cell Distribution Width 12.8 % (11.0-15.5) Platelet Count 300 K/uL (130-400) Mean Platelet Volume 9.4 fL (7.5-10.5) Immature Granulocyte % (Auto) 0.4 % (0-1) Neutrophils (%) (Auto) 89.3 % (40.0-77.0) H Lymphocytes (%) (Auto) 7.5 % (21.0-51.0) L Monocytes (%) (Auto) 2.3 % (3.0-13.0) L Eosinophils (%) (Auto) 0.4 % (0.0-8.0) Basophils (%) (Auto) 0.1 % (0.0-5.0) Neutrophils # (Auto) 14.2 K/uL (1.8-7.7) H Lymphocytes # (Auto) 1.2 K/uL (1.0-4.8) Monocytes # (Auto) 0.4 K/uL (0.1-1.0) Eosinophils # (Auto) 0.07 K/uL (0.00-0.70) Basophils # (Auto) 0.02 K/uL (0.00-0.20) Absolute Immature Granulocyte (auto 0.06 K/uL (0-1) Nucleated Red Blood Cells 0.0 % (0.0-0.19) White Cell Morphology Comment CONSISTENT W/DIFF Sodium Level 136 mmol/L (136-145) Potassium Level 3.3 mmol/L (3.5-5.1) L Chloride Level 97 mmol/L (101-111) L Carbon Dioxide Level 23 mmol/L (21-32) Blood Urea Nitrogen 18 mg/dL (7-18) Creatinine 1.0 mg/dL (0.5-1.0) Glomerular Filtration Rate Calc 54 mL/min (>90) Random Glucose 174 mg/dL (70-105) H Lactic Acid Level 3.2 mmol/L (0.8-2.5) H Total Calcium 9.6 mg/dL (8.5-10.1) Magnesium Level 1.60 mg/dL (1.80-2.40) L Total Creatine Kinase 57 U/L (21-232) # Troponin I High Sensitivity 5 ng/L (4-50) MDM I will start the workup with the a fluid bolus then electrolytes and UA. Patient lactate is 3.2. I have asked for a repeat in an hour. Her magnesium in her potassium were both low. I have replenished them. UA is still pending. Patient needs to be admitted to the hospital for completion of a resuscitation. I will give the patient a single dose of Zosyn. ED Course Orders Procedure Category Date Status Time Cbc With Differential LAB 03/22/25 Complete 05:09 Basic Metabolic Panel LAB 03/22/25 Complete 05:09 Magnesium LAB 03/22/25 Complete 05:09 Lactated Ringers PHA 03/22/25 Complete 1000ml (Lactated 05:11 Ondansetron 4mg Inj PHA 03/22/25 Complete (Zofran 4mg Inj) 05:30 Urinalysis Profile LAB 03/22/25 Logged 05:16 Iv Insertion CPOE 03/22/25 Transmitted 05:30 Pulse Ox(Continuous) RT 03/22/25 Transmitted 05:30 Vital Signs Per CPOE 03/22/25 Transmitted Routine 05:30 12 Lead Ekg Tracing- EKG 03/22/25 Logged Technical 05:30 Blood Cult CHRISTA 03/22/25 In Process 05:30 Culture Urine CHRISTA 03/22/25 Logged 05:30 Troponin I High LAB 03/22/25 Complete Sensitivity 05:30 Lactic Acid LAB 03/22/25 Complete 05:30 Lactated Ringers PHA 03/22/25 In Process 1000ml (Lactated 05:30 Creatine Kinase, Total LAB 03/22/25 Complete 05:25 Lactic Acid LAB 03/22/25 Logged 07:10 Magnesium 2gm Premix PHA 03/22/25 In Process 50ml (Magnesium 2gm 06:30 Potassium Bicarb/Cit PHA 03/22/25 Complete Ac 25meq (K-Lyte Ta 06:30 Chest 1vw RAD 03/22/25 Logged 06:15 Zosyn 3.375gm+Ns 50ml PHA 03/22/25 Complete (Zosyn 3.375gm+Ns 06:15 Current Medications Medications (Trade) Dose Ordered Sig/Ron Route PRN Reason Start Time Stop Time Status Last Admin Dose Admin Lactated Ringer's 1,716 ml @ 572 mls/hr ONCE ONCE IV 03/22/25 05:30 03/22/25 08:29 Lactated Ringer's (Lactated Ringers 1000ml) 1,000 ml BOLUS STAT IV 03/22/25 05:11 03/22/25 05:15 DC 03/22/25 05:29 Magnesium Sulfate 50 ml @ 0 mls/hr PROTOCOL IV 03/22/25 06:30 04/21/25 06:29 03/22/25 06:26 Ondansetron HCl (zoFRAN 4MG INJ) 4 mg ONCE ONCE IVP 03/22/25 05:30 03/22/25 05:31 DC 03/22/25 05:29 Piperacillin Sod/ Tazobactam Sod (Zosyn 3.375gm+NS 50ml) 3.375 gm ONCE STAT IV 03/22/25 06:15 03/22/25 06:18 DC 03/22/25 06:26 Potassium Bicarbonate (K-Lyte Tablet Eff 25 Meq Tablet.eff) 50 meq ONCE ONCE PO 03/22/25 06:30 03/22/25 06:31 DC 03/22/25 06:26 Vital Signs Date Time Temp Pulse Resp B/P (MAP) Pulse Ox O2 Delivery O2 Flow Rate FiO2 03/22/25 05:35 96.4 64 18 121/51 98 Room Air* 0 21 03/22/25 04:57 96.1 70 20 75/43 94 Room Air DX & DISP Disposition: Inpatient Departure Impression: Primary Impression: Dehydration, severe Additional Impressions: Diarrhea, Lactic acidosis, Hypomagnesemia, Hypokalemia Condition: Stable Referrals: OJ MANZANARES MD (PCP) JAEL NIETO MD Mar 22, 2025 05:47
[2025-03-22 05:49] LABS: CREATININE 1.0 mg/dL (0.5-1.0); GLOMERULAR FILTR. RATE CALC 54.0 mL/min (>90); GLUCOSE,RANDOM 174.0 mg/dL (70-105); SODIUM SERUM 136.0 mmol/L (136-145); UREA NITROGEN, BLOOD 18.0 mg/dL (7-18)
[2025-03-22 05:53] LABS: CREATINE KINASE, TOTAL 57.0 U/L (21-232)
[2025-03-22 06:13] LABS: WBC MORPHOLOGY CONSISTENT W/DIFF
[2025-03-22] MEDS: ZOSYN 3.375GM +NS 50ML IV STA (06:26)
[2025-03-22] MEDS: MAGNESIUM 2GM PREMIX 50ML 50 ML IV SCH (06:26)
--- NOTE | 2025-03-22 07:08 | HMCIMG ---
EXAM: CR Chest, 1 View. CLINICAL HISTORY: sepsis COMPARISON: None provided. FINDINGS: LUNGS: The lungs show no infiltrate or other acute finding. PLEURAL SPACES: No pleural effusion or pneumothorax. MEDIASTINUM: There is some widening of the paratracheal stripe within the superior right mediastinum which needs further evaluation. May represent adenopathy or thyroid enlargement. BONES: No aggressive appearing osseous lesion seen. IMPRESSION: Prominence of the superior right mediastinum with widening of the paratracheal stripe. May represent prominent azygous vein, adenopathy, mass, or thyroid enlargement. CT of the chest with contrast is recommended for more complete evaluation. Comparison with prior chest radiographs, if these were available would be useful. No other acute cardiopulmonary process. /[place]
[2025-03-22 07:18] LABS: COVID19 (SARS ANTIGEN RAPID) PRESUMPTIVE NEGATIVE (NEGATIVE); INFLUENZA TYPE A Negative For Type A (NEGATIVE); INFLUENZA TYPE B Negative For Type B (NEGATIVE)
--- NOTE | 2025-03-22 07:44 | HP ---
[facility] HISTORY AND PHYSICAL Date of Service: Mar 22, 2025 Time of Service: 07:43 HISTORY OF PRESENT ILLNESS: [ ] admission date: 03/22/25 PCP: CC: syncope, diarrhea, nauseated This is a 89-year-old female presents in ED with chief complaints passi ng out. Onset earlier this morning 3:30 am was sitting on toilet then found herself on the floor. She reports she denied bumped her head patient is fully awake alert oriented x3. Patient does not report having any palpitation dizziness chest pain chest discomfort prior her fainting. She notify her son who lives with her then she passed out. She reports having diarrhea that sta rted yesterday evening. Described diarrhea loose/semi watery. Severity reports on night long until this morning. Aggravating factors none alleviating factors none. Patient denies abdominal pain, fever, chills melena dark tardy stool. Patient reports was on oral antibiotics two weeks ago for UTI. REVIEW OF SYSTEMS CONSTITUTIONAL: Denies fevers, chills, or night sweats. No unintentional weight loss reported. NEUROLOGICAL: Denies headache, amaurosis fugax, motor weakness, sensory deficit, vertigo/spinning sensation, gait abnormalities, or tremors. ENT: No hearing loss, otalgia, otorrhea, rhinitis, rhinorrhea, hoarseness, or sore throat. CARDIOVASCULAR: Denies any exertional angina, dyspnea on exertion, orthopnea, paroxysmal nocturnal dyspnea, palpitations, life-threatening arrhythmias, claudication. PULMONARY: Denies any shortness of breath, cough, phlegm/sputum, hemoptysis, pleuritic chest pain. SLEEP: Denies morning headaches, daytime somnolence or napping. Denies difficulty falling asleep, staying asleep, waking from sleep. Denies knowledge of snoring. GASTROINTESTINAL: Denies any type of dysphagia to either liquids or solids. Denies nausea, vomiting, pyrosis, early satiety, abdominal pain, diarrhea, constipation, or changes in stool consistency or caliber. Denies coffee-ground emesis, hematemesis, hematochezia, or melanotic stools. GENITOURINARY: Denies frequency, urgency, nocturia, hematuria or incontinence (Storage/Irritative symptoms.) Low urinary stream, straining to void, urinary intermittency or hesitancy, splitting of the voiding stream, terminal dribbling. ENDOCRINOLOGIC: Denies polyuria, polydipsia, polyphagia or heat/cold intolerances. HEMATOLOGIC: Denies thrombophilia/previous clots, or coagulopathy/bleeding diso rders. ONCOLOGIC: Denies personal history of malignancy. DERMATOLOGIC: Denies rashes or pruritus. PSYCHIATRIC: Denies any suicidal or homicidal ideation. Denies hallucinations. PAST MEDICAL HISTORY: [ ]Hypertension. Hyperlipidemia. Hypothyroidism. PAST SURGICAL HISTORY: [ ] PAST SOCIAL HISTORY: [ ] FAMILY HISTORY: [ ] Coded Allergies: No Known Drug Allergies (Unverified Allergy, Unknown, 03/11/16) PHYSICAL EXAM GENERAL APPEARANCE: The patient is awake, alert, and oriented, in no acute cardiopulmonary distress. NEUROLOGICAL: Cranial nerves II-XII grossly intact. Motor is 5/5 in bilateral upper and lower extremities proximal to distal. No sensory deficits. HEENT: Face is symmetric. Pupils are equal and reactive. Extraocular movements are intact. NECK: Supple. No JVD. No thyromegaly. No submental, submandibular, pre- /postauricular, occipital or supraclavicular lymphadenopathy. CHEST: Normal chest expansion. No Telemetry. LUNGS: Absence of any rales, rhonchi or any wheezing. CARDIOVASCULAR: Regular. S1 and S2 normal. No appreciable rubs, murmurs or gallops. ABDOMEN: Soft, nontender, and nondistended. There is no rebound, voluntary guarding, or rigidity. : Deferred. No Wilson. EXTREMITIES: Non-edematous and not cyanotic. No clubbing. Good capillary refill. SKIN: No skin breakdown. Vital Sign (Last 24 Hours) 03/22/25 05:35 Temp 96.4 Pulse 64 Resp 18 B/P (MAP) 121/51 Pulse Ox 98 O2 Delivery Room Air* O2 Flow Rate 0 FiO2 21 LABS: Laboratory: Test 03/22/25 06:56 03/22/25 06:48 03/22/25 05:25 Range/Units Lactic Acid Level 2.5 0.8-2.5 mmol/L Influenza Type A Antigen Negative For Type A NEGATIVE Influenza Type B Antigen Negative For Type B NEGATIVE SARS-CoV-2 Antigen (Rapid) PRESUMPTIVE NEGATIVE NEGATIVE White Blood Count 15.9 H 4.8-10.8 K/uL Red Blood Count 3.58 L 4.00-5.50 MIL/uL Hemoglobin 11.4 L 12.0-16.0 g/dL Hematocrit 32.1 L 36-48 % Mean Corpuscular Volume 89.7 79-99 fL Mean Corpuscular Hemoglobin 31.8 27.0-33.0 pg Mean Corpuscular Hemoglobin Concent 35.5 32.0-36.0 g/dL Red Cell Distribution Width 12.8 11.0-15.5 % Platelet Count 300 130-400 K/uL Mean Platelet Volume 9.4 7.5-10.5 fL Immature Granulocyte % (Auto) 0.4 0-1 % Neutrophils (%) (Auto) 89.3 H 40.0-77.0 % Lymphocytes (%) (Auto) 7.5 L 21.0-51.0 % Monocytes (%) (Auto) 2.3 L 3.0-13.0 % Eosinophils (%) (Auto) 0.4 0.0-8.0 % Basophils (%) (Auto) 0.1 0.0-5.0 % Neutrophils # (Auto) 14.2 H 1.8-7.7 K/uL Lymphocytes # (Auto) 1.2 1.0-4.8 K/uL Monocytes # (Auto) 0.4 0.1-1.0 K/uL Eosinophils # (Auto) 0.07 0.00-0.70 K/uL Basophils # (Auto) 0.02 0.00-0.20 K/uL Absolute Immature Granulocyte (auto 0.06 0-1 K/uL Nucleated Red Blood Cells 0.0 0.0-0.19 % White Cell Morphology Comment CONSISTENT W/DIFF Sodium Level 136 136-145 mmol/L Potassium Level 3.3 L 3.5-5.1 mmol/L Chloride Level 97 L 101-111 mmol/L Carbon Dioxide Level 23 21-32 mmol/L Blood Urea Nitrogen 18 7-18 mg/dL Creatinine 1.0 0.5-1.0 mg/dL Glomerular Filtration Rate Calc 54 >90 mL/min Random Glucose 174 H 70-105 mg/dL Total Calcium 9.6 8.5-10.1 mg/dL Magnesium Level 1.60 L 1.80-2.40 mg/dL Total Creatine Kinase 57 # 21-232 U/L Troponin I High Sensitivity 5 4-50 ng/L Current Medications Medications (Trade) Dose Ordered Sig/Ron Route PRN Reason Start Time Stop Time Status Last Admin Dose Admin Lactated Ringer's (Lactated Ringers 1000ml) 1,000 ml BOLUS STAT IV 03/22/25 05:11 03/22/25 05:15 DC 03/22/25 05:29 1,000 ML Magnesium Sulfate 50 ml @ 0 mls/hr PROTOCOL IV 03/22/25 06:30 04/21/25 06:29 03/22/25 06:26 100 MLS/HR Piperacillin Sod/ Tazobactam Sod (Zosyn 3.375gm+NS 50ml) 3.375 gm ONCE STAT IV 03/22/25 06:15 03/22/25 06:18 DC 03/22/25 06:26 3.375 GM DIAGNOSTICS / RADIOLOGY: [ ] ASSESSMENT: SIRS without organ dysfunction POA autonomic imbalance POA acute gastroenteritis POA Dehydration POA acute anemia POA Chronic problems: HTN, HLD hypothyroidism PLAN: Admit: medical floor condition:guarded Status:Full Code IVF:LR at 75 ml/hr Consultants c Antibiotics: Zosyn 3 375 gm IV every 8 hrs. Imaging: Echo to evaluate LV function Labs cbc, cmp, mag+ Tsh, Lipid panel and anemia workup Microbiology: UA pending : Stool PCR: c diff, ova and parasites Replace electrolytes as needed as per protocol to keep potassium above 4.0 magnesium 2.0. Home medications pending to be reviewed by RN nurse. PRN: MEDICATIONS Tylenol 650 mg po every 4 hrs for fever zofran 4 mg IV every 6 hrs for n/v Hydralazine 5 mg IV every 4 hrs systolic pressure > 160 bowel regiment: lactulose 20 gm PO BID PRN constipation PT services eval and treat Supportive measures: DVT ppx, GI ppx all questions answered time spent: > 35 min Supervising MD: Dr. Fredy Kimble c/d This document was generated in part using voice recognition software, occasional wrong word or sound alike substitutions may have occurred due to the inherent limitations of voice recognition software. Read the chart carefully and recognize using context, where the substitutions have occurred. Although every effort was made to edit the content, group worker and typing errors may occur ADVANCED CARE PLANNING 1. Which of the following were discussed? Hospice Care - Yes / No Therapeutic options - Yes / No Advance Directives - Yes / No Other discussions - 2. Discussed with who? 3. Voluntary nature of this service was explained to the patient? Yes / No 4. Amount of time spent - 5. Reviewed by Physician? (if this service was performed by NPP) Yes / No ATTESTATION BY PHYSICIAN I have seen and examined the patient. I reviewed the documentation, medical decision making, and treatment plan as noted by the mid-level provider above. I agree with the findings and plan of care. LUNA GIRALDO MD, [facility] Mar 22, 2025 07:44
[2025-03-22] MEDS ORDERED: PoTASSium chl 10% ELIXIR 20MEQ 20 MEQ/15 ML UDCUP PO PRN (08:00)
--- NOTE | 2025-03-22 08:35 | EKG ---
[facility] Test Date: 2025-03-22 Test Time: 05:47:48 Pat Name: CHRIST MAZA Department: EDHIP Room: 305 Gender: F Radar Engineer: [birth year] : 1935 Requested By: JAEL NIETO Order Number: [id number] Reading MD: Adriel Keen Measurements Intervals [place] Rate: 66 P: 0 [place]: 67 QRS: 40 QRSD: 153 T: 7 QT: 441 QTc: 461 Interpretive Statements Sinus rhythm Right bundle branch block Compared to ECG 07/16/2024 08:08:24 No significant changes Electronically Signed On 03-23-2025 16:32:57 CDT by Adriel Keen Please click the below link to view image of tracing.
[2025-03-22] MEDS: LACTATED RINGERS 1000ML 1,000 ML IV SCH (10:41)
[2025-03-22 10:46] LABS: APPEARANCE,URINE CLEAR (CLEAR); GLUCOSE, URINE (UA) NEGATIVE (NEGATIVE); LEUKOCYTE ESTERASE ,URINE NEGATIVE Leu/uL (NEGATIVE); NITRATE,URINE NEGATIVE (NEGATIVE); OCCULT BLOOD,URINE LARGE (NEGATIVE)
[2025-03-22 11:04] LABS: ADD UA MICROSCOPIC YES
[2025-03-22] MEDS: PoTASSium chloRIDE 20MEQ ER 20 MEQ ERTAB PO PRN (11:06)
[2025-03-22 11:12] LABS: SQUAMOUS EPITHELIAL CELL,UR RARE /HPF (0-2)
--- NOTE | 2025-03-22 11:14 | NUR ---
REPORT GIVEN TO HANG NURSE/ CORY NURSE AT 1110 PT AAOX4, PT STABLE NO DISTRESS VITALS WNL NO C/O PAIN NOW. PT TAKEN VIA STRETCHER W/ PERSONAL BELONGINGS. SON AT BEDSIDE.
[2025-03-22 11:32] VITALS: O2SAT 96
[2025-03-22] MEDS ORDERED: 0.9%NACL 50ML IV SCH (13:00)
[2025-03-22 13:29] LABS: % IRON SATURATION 23.7 % (22-44); IRON, SERUM 55.0 mcg/dL (50-170)
[2025-03-22] MEDS: ZOSYN 3.375GM +NS 50ML IVPB SCH (14:35)
[2025-03-22 16:00] VITALS: BP 130/65; PULSE 80; RESP 18; TEMP 97.4
[2025-03-22 20:00] VITALS: BP 111/58; PULSE 72; RESP 18; TEMP 97.9
[2025-03-23] VITALS: BP 125/67; PULSE 68; RESP 18; TEMP 98.1
[2025-03-23 04:00] VITALS: BP 135/59; PULSE 63; RESP 18; TEMP 97.7
[2025-03-23 08:00] VITALS: BP 157/61; PULSE 70; RESP 20; TEMP 98.1
--- NOTE | 2025-03-23 10:17 | NUR ---
DCP:HOME Pt currently lives at home with her 2 sons. Pt does have a cane, walker, and wheelchair available to her at home. Pt does not have home health or provider services. pt states that she is able to complete ADLs independently. PCP is Dr. Ziggy Pettit and uses the [employer] for any RX needs. At [place] pt will want to go home and family can assist with transportation services. Addendum: 03/23/25 at 1018 by CATRINA MAYO SS Amended: Links added.
[2025-03-23 10:53] LABS: NUCLEATED RED BLOOD CELLS 0.0 % (0.0-0.19); PLATELET COUNT (AUTO) 231.0 K/uL (130-400); RED BLOOD CELL COUNT(AUTO) 3.2 MIL/uL (4.00-5.50); RED CELL DISTRIBUTION WIDTH 13.1 % (11.0-15.5); WHITE BLOOD COUNT (AUTO) 7.6 K/uL (4.8-10.8)
[2025-03-23 11:08] LABS: ASPARTATE AMINOTRANSFERASE 15.0 U/L (10-37); CREATININE 0.8 mg/dL (0.5-1.0); GLOMERULAR FILTR. RATE CALC 70.0 mL/min (>90); GLUCOSE,RANDOM 97.0 mg/dL (70-105); SODIUM SERUM 135.0 mmol/L (136-145); TOTAL PROTEIN, SERUM 6.5 g/dL (6.0-8.3); UREA NITROGEN, BLOOD 10.0 mg/dL (7-18)
[2025-03-23 12:00] VITALS: BP 142/58; PULSE 81; RESP 20; TEMP 97.8
[2025-03-23] MEDS ORDERED: MAGNESIUM 2GM PREMIX 50ML 50 ML IV SCH (12:00)
[2025-03-23] MEDS: MAGNESIUM 2GM PREMIX 50ML 50 ML IV PRN (12:09)
--- NOTE | 2025-03-23 12:11 | DS ---
Discharge Summary Hospital Course Summary: Ms. Chaidez is an 89-year-old female admitted with syncope, diarrhea, and nausea. On admission, she was hemodynamically stable, with laboratory findings notable for leukocytosis, mild anemia, hypomagnesemia, and mild renal impairment. She received IV fluids, electrolyte replacement, and empiric antibiotics. All infectious serologies, including influenza A/B and COVID-19, were negative. Urinalysis on admission showed large occult blood and 2-5 WBCs; urine culture grew <10,000 CFU, and blood cultures remained negative throughout hospitalization. During her stay, the patients gastrointestinal symptoms resolved, and she denied any further diarrhea or abdominal complaints. She tolerated her diet well and remained hemodynamically stable with no acute events overnight. This mornings laboratory data showed: WBC: 7.6 K/uL Hemoglobin: 10.3 g/dL Hematocrit: 29.2% Sodium: 135 mmol/L Magnesium: 1.6 mg/dL Albumin: 3.2 g/dL Magnesium replacement was initiated for persistent hypomagnesemia. Once magnesium is repleted, the patient will be appropriate for discharge. DISCHARGE CONDITION: Hemodynamically stable Tolerating diet No acute complaints No evidence of ongoing infection DISCHARGE MEDICATIONS: Resume home medications No antibiotics prescribed at discharge, as she recently completed a course for UTI and has no current evidence of infection FOLLOW-UP: Follow up with primary care provider in 2-3 days Return to ED for any new or worsening symptoms INSTRUCTIONS: Continue to monitor for any recurrence of gastrointestinal symptoms, fever, or signs of infection Maintain adequate hydration Adhere to prescribed medication regimen Magnesium supplementation as directed until repletion confirmed SUMMARY: Ms. Chaidez was admitted for syncope and gastrointestinal symptoms, which have resolved. She has remained stable, with improvement in laboratory parameters. She is safe for discharge with close outpatient follow-up. Procedure(s): [place] [address] [place] [id number] IMAGING REPORT Signed PATIENT: CHRIST CHAIDEZ MR#: [id number] : 1935 SEX: F AGE: 89 LOCATION: ED ORDER 6 STATUS: [facility] REPORT#: [id number] SERVICE 4 REASON: sepsis ORDERING PHYSICIAN: JAEL NIETO MD PROCEDURE: CXR1VW - CHEST 1VW EXAM: CR Chest, 1 View. CLINICAL HISTORY: sepsis COMPARISON: None provided. FINDINGS: LUNGS: The lungs show no infiltrate or other acute finding. PLEURAL SPACES: No pleural effusion or pneumothorax. MEDIASTINUM: There is some widening of the paratracheal stripe within the superior right mediastinum which needs further evaluation. May represent adenopathy or thyroid enlargement. BONES: No aggressive appearing osseous lesion seen. IMPRESSION: Prominence of the superior right mediastinum with widening of the paratracheal stripe. May represent prominent azygous vein, adenopathy, mass, or thyroid enlargement. CT of the chest with contrast is recommended for more complete evaluation. Comparison with prior chest radiographs, if these were available would be useful. No other acute cardiopulmonary process. /Mobile DICTATED BY: DANY POON Jr., MD DATE: 03/22/25807 ELECTRONICALLY SIGNED BY: DANY POON Jr., MD DATE: 03/22/25807 Assessment/Plan: DISCHARGE SUMMARY: Syncope, vasovagal (resolved) Hypomagnesemia (corrected) Mild normocytic anemia (stable) Hypertension (chronic, stable) Hyperlipidemia (chronic, stable) Hypothyroidism (chronic, stable) Admitting Diagnosis SIRS without organ dysfunction POA Autonomic imbalance POA Acute gastroenteritis POA Dehydration POA Acute anemia POA Chronic problems: HTN, HLD hypothyroidism Discharge Instructions: Continue to monitor for any recurrence of gastrointestinal symptoms, fever, or signs of infection Maintain adequate hydration Adhere to prescribed medication regimen Magnesium supplementation as directed until repletion confirmed Home Medications: Reported Medications Atenolol (Atenolol) 50 Mg Tablet, 50 MG PO DAILY, TAB 10/30/21 Dorzolamide HCl/Pf (Dorzolamide 2% Eye Drop) 10 Ml Drops, 1 DROP OU BID, DROP 10/30/21 Levothyroxine Sodium (Synthroid 100 Mcg Tab) 100 Mcg Tablet, 88 MCG PO DAILY, TAB 10/30/21 Pravastatin Sodium (Pravastatin Sodium) 20 Mg Tablet, 20 MG PO HS, TAB 10/30/21 Latanoprost/Pf (Latanoprost 0.005% Eye Drop) 7.5 Ml Drops, 7.5 ML OP HS, DROP 11/07/19 Losartan Potassium (Losartan Potassium) 25 Mg Tablet, 25 MG PO HS, TAB 11/07/19 Hydrochlorothiazide (Hydrochlorothiazide) 12.5 Mg Tablet, 12.5 MG PO DAILY, TAB 11/07/19 Discontinued Scripts Dexlansoprazole (Dexilant) 30 Mg Cap., 1 CAP PO DAILY for 30 Days, #30 CAP 0 Refills Prov:ARACELI CHERRY MD 07/16/24 Time spent arranging discharge: 31-60 minutes ATTESTATION BY PHYSICIAN I have seen and examined the patient. I reviewed the documentation, medical decision making, and treatment plan as noted by the mid-level provider above. I agree with the findings and plan of care. LUNA GIRALDO MD, [facility] Mar 23, 2025 12:11
--- NOTE | 2025-03-23 15:54 | HMCSR ---
APPROVED REPORT EXAM: Two-dimensional and M-mode echocardiogram with Doppler and color Doppler. INDICATION ICD: Syncope R55 2D Dimensions RVDd2.8 cmLVEF(%)69.2 (>50%)LVED Vol(simp.)63.0 mL IVSd0.9 (0.7-1.1cm)FS(%)39 %LVES Vol(simp.)20.0 mL LVDd4.3 (3.8-5.6cm)LA (2D)3.8 (1.6-4.0cm)LVEF(%, simp.)68 % PWd0.5 (0.7-1.1cm)Ao Root(2D)3.4 (2.0-3.7cm)LA ESV INDEX (BP)28.40 mL/m2 IVSs1.2 cmLVOT diam2.0 (1.8-2.4cm) LVDs2.6 (2.5-4.0cm)IVC diam2.0 cm PWs0.9 cm Deformation Strain Apical 4-22.5 % Apical 2-20.5 % Apical 3-22.7 % Global Strain-21.9 % Aortic Valve AoV Vmax1.7 m/Kimberlee Peak GR11.1 mmHgLVOT Vmax1.7 m/s AoV VTI0.3 mAo Mean GR5.5 mmHgLVOT VTI0.37 m WILLY (VMAX)3.22 cm2AVA (VTI) 3.5 cm2 Mitral Valve MV E Vmax78.8 cm/sDECEL Vziq257 ms MV A Huoq845.8 cm/sP 1/2 T59 ms E/A ratio0.8MVA (PHT)3.7 cm2 TDI E/E' Hhdlxv76.2E/E' Lateral9.9 Medial E' Peak V6.45 cm/sLateral E' Peak V8.00 cm/s Pulmonary Valve PV Vmax1.4 m/sPV VTI0.31 mPV Mean GR4.8 mmHg PV Peak GR7.5 mmHg Tricuspid Valve TR Vmax2.6 m/sRAP (EST) 3 [id number] mmHg TR Peak GR26.9 mmHg Left Ventricle The left ventricle is normal size. GLS -22.0% There is normal LV segmental wall motion. There is norm al left ventricular wall thickness. The LVEF is 60-65%. The left ventricular diastolic function is no rmal. Right Ventricle The right ventricle is normal size. The right ventricular systolic function is normal. Atria The left atrium size is normal. The right atrium size is normal. Aortic Valve The aortic valve is normal in structure. No aortic regurgitation is present. There is no aortic valvu lar stenosis. Mitral Valve The mitral valve is normal in structure. There is trace of mitral valve regurgitation noted. There is no mitral valve stenosis. Tricuspid Valve The tricuspid valve is normal in structure. There is no tricuspid valve regurgitation noted. Pulmonic Valve Pulmonic valve is not well visualized. There is no pulmonic valvular regurgitation. Great Vessels The aortic root is normal in size. The IVC is normal in size and collapses >50% with inspiration. Pericardium There is no pericardial effusion. Other Information Quality : Technically difficult study due to body habitus Conclusion The left ventricle is normal size.The LVEF is 60-65% with normal LV segmental wall motion. The left ventricular diastolic function is normal. The right ventricular systolic function is normal. Both atria are normal in size. No hemodynamically significant valvular abnormalities. There is no pericardial effusion.
== END 2025-03-23 16:02 | disposition home or self-care (01) ==
LOC: EDH 04:56 → EDHIP 07:36 → UNDOADMOB 07:36 → INTOOBSV 07:36 → EDHIP 11:32 → 3BH 11:32
PROVIDERS: ADMIT Internal Medicine; ATTEND Internal Medicine
DX: R55 Syncope and collapse (principal); K52.9 Noninfective gastroenteritis and colitis, unspecified; E86.0 Dehydration; R65.10 Systemic inflammatory response syndrome (SIRS) of non-infectious origin without acute organ dysfunction; G90.89 Other disorders of autonomic nervous system; N39.0 Urinary tract infection, site not specified; E83.42 Hypomagnesemia; E87.6 Hypokalemia; I10 Essential (primary) hypertension; E78.5 Hyperlipidemia, unspecified; E03.9 Hypothyroidism, unspecified; D64.9 Anemia, unspecified; E87.20 Acidosis, unspecified; Z79.899 Other long term (current) drug therapy; Z98.890 Other specified postprocedural states; Z20.822 Contact with and (suspected) exposure to COVID-19
CPT/HCPCS: 96376; 96361 ×2; 96365; 96366 ×2; 96375; 99285; 83540; 83550; 82550; 83735 ×3; 84484; 84132; 80048; 85025; 87040 ×2; 87086; 87804 ×2; 82948 ×3; 83605 ×3; 87426; 81001; 36415 ×2; 71045; 93005; 96367; 80053; 85027; 82270; 93306; 93356; 87507; J3475 ×2; J2405; J2543 ×4; G0378 ×7

== ENCOUNTER → 2025-04-14 | Outpatient (CLI) | payer OTHER ==
[~2025-04-14] MED LIST changes: -DEXL30CA3 PO; +IOHEXOL-350 50ML VIAL IV ONE
--- NOTE | 2025-04-14 23:56 | HMCIMG ---
EXAM: CT CHEST WITH INTRAVENOUS CONTRAST CLINICAL HISTORY: Abnormal findings on diagnostic imaging of other specified body structures; prior radiograph suggested right paratracheal opacity. TECHNIQUE: Axial CT images of the chest obtained following intravenous contrast administration with multiplanar reformations. CONTRAST: Contrast administered ??? OMNIPAQUE 350 50ML.. COMPARISON: No prior CT available; prior chest radiograph findings referenced. FINDINGS: LUNGS Peripheral ground-glass opacity with subtle reticulation in the inferior lingula, compatible with mild focal interstitial change. Mild bronchial wall thickening in segmental and subsegmental bronchi of the middle lobe and lingula. Scattered peribronchial micronodules, likely inflammatory. No pulmonary mass or consolidation. PLEURAL SPACES No pneumothorax or pleural effusion. AIRWAYS Central airways patent. Mild bronchial wall thickening consistent with chronic airway inflammation. MEDIASTINUM Right paratracheal prominence corresponds to a vertically oriented, tortuous brachiocephalic trunk containing calcified atherosclerotic plaques, explaining the opacity reported on prior radiographs. No mediastinal or hilar lymphadenopathy. Thyroid gland normal. HEART AND GREAT VESSELS Cardiac size normal. No pericardial effusion. Thoracic aorta normal in caliber. Pulmonary artery normal in size. BONES Age-appropriate thoracolumbar spondylosis. No aggressive lesion or acute fracture. UPPER ABDOMEN Visualized upper abdominal organs unremarkable. IMPRESSION: * Right paratracheal opacity noted on prior radiographs corresponds to a tortuous, vertically oriented brachiocephalic trunk with calcified plaques, not mass or lymphadenopathy. * Peripheral ground-glass opacity with reticulation in the inferior lingula and peribronchial micronodules with mild airway wall thickening, compatible with mild focal airway inflammation. * No pulmonary mass, effusion, pneumothorax, or acute parenchymal abnormality. * Age-appropriate thoracolumbar spondylosis. * Comparison: No prior CT available; correlation made with reported radiographic findings. * Radiologic???clinical correlation: Findings account for the previously described right paratracheal stripe prominence and suggest low-grade airway inflammation; no evidence of mediastinal mass or adenopathy. /[place]
== END | disposition home or self-care (01) ==
LOC: RAH 08:25
DX: J98.4 Other disorders of lung (principal); R93.89 Abnormal findings on diagnostic imaging of other specified body structures; M47.815 Spondylosis without myelopathy or radiculopathy, thoracolumbar region
CPT/HCPCS: 71260; Q9967

== ENCOUNTER → 2025-04-19 | Outpatient (CLI) | payer OTHER ==
[~2025-04-19] MED LIST changes: -IOHEXOL-350 50ML VIAL IV ONE
--- NOTE | 2025-04-19 15:24 | HMCIMG ---
DOUBLE CONTRAST UPPER GI SERIES: CLINICAL HISTORY: Heartburn Finding: The study was performed using provocative maneuvers After swallowing effervescent crystal and thick barium, there is no definite intrinsic or extrinsic lesion seen in the esophagus. There is a grade 1 esophageal reflux with no evidence of hiatal hernia. The stomach is normal in size, shape, and configuration. The rugal folds appear to be normal. The duodenal bulb, duodenal sweep, and upper jejunum appear to be normal. The gallbladder is surgically absent with clips in the gallbladder fossa. Fluoroscopy time: 1.5 minutes IMPRESSION: Grade 1 esophageal reflux Otherwise NORMAL DOUBLE CONTRAST UPPER GI SERIES.
== END | disposition home or self-care (01) ==
LOC: RAH 09:17
PROVIDERS: ATTEND Internal Medicine Gastroenterology
DX: K21.9 Gastro-esophageal reflux disease without esophagitis (principal); R12 Heartburn
CPT/HCPCS: 74240

== ENCOUNTER → 2025-05-04 | Outpatient (CLI) | payer OTHER ==
--- NOTE | 2025-05-04 14:51 | HMCIMG ---
Exam: CT sinuses without contrast. History: Acute recurrent frontal sinusitis Technique: Multiplanar sequences were obtained without IV contrast. CT scan performed according to ALARA principles. Automated exposure control used during exam. Findings: The paranasal sinuses are clear. The bilateral sphenoidal ostia are patent.] The bilateral sphenoid ethmoidal recesses are patent. The bilateral frontal recesses are patent. The bilateral ostiomeatal units are patent. Hyperostosis frontalis There are no Lázaro cells. Left middle turbinate small blaze bullosa. Included intracranial contents and soft tissue structures are unremarkable. IMPRESSION: 1. No acute sinonasal findings. 2. Hyperostosis frontalis. 3. Left middle turbinate small blaze bullosa. /[place]
== END | disposition home or self-care (01) ==
LOC: RAH 13:38
DX: M85.2 Hyperostosis of skull (principal); J01.11 Acute recurrent frontal sinusitis
CPT/HCPCS: 70486